=== PATIENT | female | born 1955 | race Caucasian/White ===

== ENCOUNTER 2023-11-11 09:07 | Outpatient (OUT) | payer MEDICARE, SELFPAY ==
--- NOTE | 2023-11-11 09:15 | MM_ITS ---
Patient Name: ADY MEADOWS MR#: [id number] : 1955 Exam Date: 11/11/2023 Ordering Doctor: DR Cindi Kirk M.D. RADIOLOGY REPORT PROCEDURE: MM TOMOSYNTHESIS SCREENING BI COMPARISON: MG MAMM ARCENIO SCRN W CAD DIG, 11/30/2015. MG MAMM SCREEN ARCENIO W CAD, 12/11/2016. INDICATIONS: Screening Calculator Name NCI Breast Cancer Risk Assessment Tool 5 Year Breast Cancer Risk 1.50% Lifetime Breast Cancer Risk 4.50% Personal Breast Cancer No Personal Ovarian Cancer No Treatments None Family Cancers Sister with uterine cancer at age 23. LOCATION: [facility] BREAST COMPOSITION: Extremely dense, which lowers the sensitivity of mammography. FINDINGS: DIAGNOSTIC CATEGORY 2--BENIGN FINDING. NO CHANGE FROM COMPARISON. Scattered benign-appearing calcifications are present. Scattered benign-appearing lymph nodes are present. RIGHT BREAST: No significant suspicious finding. LEFT BREAST: No significant suspicious finding. RECOMMENDATIONS: ROUTINE MAMMOGRAM AND CLINICAL EVALUATION IN 12 MONTHS. PLEASE NOTE: A NORMAL MAMMOGRAM DOES NOT EXCLUDE THE POSSIBILITY OF BREAST CANCER. A CLINICALLY SUSPICIOUS PALPABLE LUMP SHOULD BE BIOPSIED. Dictated by: Rohan Myers MD on 11/11/2023 at 11:18 Approved by: Rohan Myers MD on 11/11/2023 at 11:19
[2023-11-11 10:12] LABS: Basophils Absolute Auto 0.1 10^3/uL (0.0-0.1); Basophils Percent Auto 1.4 % (0.2-2.0); Eosinophils Absolute Auto 0.1 10^3/uL (0.0-0.7); Eosinophils Percent Auto 1.8 % (0.9-7.0); Hematocrit 41.5 % (36.0-48.0); Hemoglobin 13.4 g/dL (12.0-16.0); Immature Granulocytes Abs Auto 0.01 10^3/uL (0.00-0.03); Immature Granulocytes Pct Auto 0.2 % (0.0-0.5); Lymphocytes Absolute Auto 1.4 10^3/uL (1.2-3.8); Lymphocytes Percent Auto 26.6 % (20.5-60.0); Mean Corpuscular HGB Conc 32.3 g/dL (29.9-35.2); Mean Corpuscular Hemoglobin 30.2 pg (26.7-34.0); Mean Corpuscular Volume 93.5 fL (81.0-99.0); Mean Platelet Volume 10.3 fL (9.5-13.5); Monocytes Absolute Auto 0.7 10^3/uL (0.3-0.8); Monocytes Percent Auto 13.3 % (1.7-12.0); Neutrophils Absolute Auto 2.9 10^3/uL (1.4-6.5); Neutrophils Percent Auto 56.7 % (43.0-75.0); Platelet Count 254 10^3/uL (150-450); Red Blood Count 4.44 10^6/uL (4.20-5.40); Red Cell Distribution Width 13.1 % (11.0-15.0); White Blood Count 5.1 10^3/uL (4.0-11.0)
[2023-11-11 12:55] LABS: Alanine Aminotransferase 34 U/L (14-59); Albumin Level 3.5 g/dL (3.4-5.0); Alkaline Phosphatase 111 U/L (46-116); Anion Gap 10.4; Aspartate Amino Transferase 20 U/L (15-37); Bilirubin Total 0.6 mg/dL (0.2-1.0); Calcium 9.3 mg/dL (8.5-10.1); Chloride 104 mmol/L (98-107); Chol HDL Ratio 2.4; Cholesterol 223 mg/dL (<=200); Estimated GFR (African America >60 (>=60); Estimated GFR (Non-African Ame >60 (>=60); Globulin 3.6 g/dL; Glucose 89 mg/dL (74-106); HDL Cholesterol 92 mg/dL (40-60); Potassium 3.4 mmol/L (3.5-5.1); Sodium 139 mmol/L (136-145); Total Protein 7.1 g/dL (6.4-8.2); Triglycerides 42 mg/dL (<=150); VLDL CHOLESTEROL 8.4 mg/dL
== END 2023-11-11 09:08 | disposition home or self-care (01) ==
PROVIDERS: PCP Internal Medicine; Visit Provider Family Medicine
DX: Z12.31 Encounter for screening mammogram for malignant neoplasm of breast (principal); I10 Essential (primary) hypertension; Z80.8 Family history of malignant neoplasm of other organs or systems
CPT/HCPCS: 36415; 77063; 77067; 80053; 80061; 85025

== ENCOUNTER 2024-07-10 05:37 | Emergency (ER) | payer MEDICARE, SELFPAY ==
[2024-07-10 05:45] VITALS: BP 172/87; PULSE 71; TEMP 36.6; O2SAT 96; BMI 29.0
--- NOTE | 2024-07-10 05:53 | XR_ITS ---
The [address] [address] Patient Name: ADY MEADOWS MRN: [id number] date: 1955 Sex: F Assigned Patient Location: ER Current Patient Location: ER Accession/Order Number: [id number] Exam Date: 07/10/2024 06:02 Report Date: 07/10/2024 06:21 At the request of: JARED SALOMON Procedure: XR chest 1V EXAMINATION: XR chest 1V HISTORY: cough COMPARISON: No relevant comparison available. FINDINGS: LUNGS: Mild opacities within lung bases, left greater than right. VASCULATURE: No increased pulmonary vasculature. PLEURA: No pneumothorax, effusion, or pleural thickening. CARDIAC: No cardiomegaly or cardiac silhouette abnormality. MEDIASTINUM: No visible mass or adenopathy. BONES: No fracture or visible bone lesion. OTHER: Negative. XR/XR chest 1V IMPRESSION: 1. Mild bibasilar infiltrates versus atelectasis. Electronically authenticated by: HUMPHREY PEREZ Date: 07/10/2024 06:21
--- OUTSIDE RECORDS SUMMARY | 2024-07-10 05:59 | XMS_ITS | CCD ---
Author Organization [facility] CliniSynj Care Team Providers Care Sign Designer Name Role Phone MIKE, DR IVAN Consulting Unavailable MIKE, DR IVAN Attending Unavailable BALL, DR IVAN Admitting Unavailable MIKE, DR IVAN Primary Care Unavailable KIRK, DR CINDI Husain Admitting Unavailable KIRK, DR CINDI Husain Consulting Unavailable KIRK, DR CINDI Husain Attending Unavailable ARTURO, KRISTINA Consulting Unavailable ARTURO, KRISTINA Attending Unavailable ARTURO, KRISTINA Admitting Unavailable BRIDGER, DR CINDI Husain Primary Care Unavailable KIRK, DR CINDI Husain Attending Unavailable BRIDGER, DR CINDI Husain Admitting Unavailable Cindi Kirk Unavailable Allergies Allergy Classification Reported Allergen(s) Allergy Type Date of Onset Reaction(s) Facility (2 sources) Acetaminophen / oxyCODONE Drug Allergy 04-06-20 15 [facility] Repository (2 sources) Sulfonamides (Antibiotic) Drug allergy (disorder) 10-31-20 14 [facility] (4 sources) Sulfacetamide Drug Allergy 07-04-20 Unknown, [facility] (3 sources) Allergies Reconciled Propensity to adverse reactions Unknown [employer] Other (3 sources) Substance with sulfonamide structure and antibacterial mechanism of action (substance) Drug allergy Unknown [employer] Other (3 sources) Sulf-10 Drug allergy HIVES/VOMITING [employer] Other (1 source) Sulfonamides (Antibiotic) Allergy to substance 07-04-20 [facility] Medications Current Medications Medication Drug Class(es) Dates Sig (Normalized) Sig (Original) [id number] 200 actuat albuterol 0.09 mg/actuat metered dose inhaler (1 source) beta2-Adrenergic Agonist Start: 07-04-20 take 1 puff(s) by inhalation every four to six hours Albuterol Sulfate Active 2 PUFF INHALATION EVERY 4-6 HOURS 8.5 July 04, 2024 12:00am Calcium (3 sources) Phosphate Binder, Calcium Calcium 1 tab Oral Active colchicine 0.6 mg oral tablet (3 sources) Start: 09-13-20 18 Colchicine 0.6 MG Take 2 tablets when you get home, then 1 tablet every 6 hours as needed Orally Once a day for 7 days 10 Sep, 2018 Active fluticasone (3 sources) Corticosteroid Start: 01-13-20 22 Fluticasone Propionate 50MCG/ACT Fluticasone Propionate 50MCG/ACT, 2 (two) [place] daily # 1, 01/12/2022, Ref. x1. Active Nasal daily for 0 *Pick strength-form from Aquaporin for eRX* Jan, Active hydroCHLOROthiazide 25 mg oral tablet (5 sources) Thiazide Diuretic Start: 02-05-20 24 take 1 tablet by mouth once daily Hydrochlorothiazide Active 0 .ROUTE .COMPLEX February 05, 2024 12:55pm Take 1 tablet by mouth once daily Start: 02-05-2024 End: 02-05-2024 take 25 mg by mouth once daily Hydrochlorothiazide Discontinued 25 MG PO Daily February 05, 2024 12:00am February 05, 2024 12:55pm take 1 tablet by obie th once daily hydroCHLOROthiazide 25 MG Take 1 tablet by mouth once daily Active losartan potassium 100 mg oral tablet (10 sources) Angiotensin 2 Receptor Berta Start: 02-05-2024 End: 02-05-2024 take 100 mg by mouth once daily Losartan Active 100 MG PO Daily February 05, 2024 9:27am Start: 01-27-2024 End: 02-05-2024 take 1 tablet by mouth once daily Losartan Discontinued 0 .ROUTE .COMPLEX January 27, 2024 3:17pm February 05, 2024 9:12am Take 1 tablet by mouth once daily for 90 days Start: 01-23-2024 End: 01-27-2024 take 100 mg by mouth once daily Losartan Discontinued 100 MG PO Daily January 24, 2024 8:37am January 27, 2024 3:17pm Start: 01-17-2024 End: 01-23-2024 take 1 tablet by mouth once daily Losartan Discontinued 0 .ROUTE .COMPLEX January 17, 2024 8:33am January 23, 2024 4:06pm Take 1 tablet by mouth once daily for 90 days Start: 01-17-2024 End: 01-17-2024 take 100 mg by mouth once daily Losartan Discontinued 100 MG PO Daily January 17, 2024 12:00am January 17, 2024 8:33am Start: 08-13-2022 take 1 tablet by obie th once daily losartan 100mg losartan 100mg, 1 Tablet daily # 90, 08/13/2022, No Refill. Active oral daily *Reorder from Aquaporin for eRx and Interaction Alerts* Aug, Active Multivitamins (3 sources) Multivitamins Ac tive predniSONE 20 mg oral tablet (1 source) Start: 07-04-2024 take 3 tablets by mouth once daily, then take 2 tablets by mouth once daily, then take 1 tablet by mouth once daily Prednisone Active 20 MG PO .COMPLEX July 04, 2024 12:00am Take 3 tabs po daily x 3 days, then take 2 tabs po daily x 3 days, then take 1 tab po daily x 3 days. Problems Active Problems Problem Classification Problem Date Documented Da te Episodic/Chronic Acute bronchitis (3 sources) Acute bronchitis; Translations: [Acute bronchitis due to other specified organisms] Episodic Allergic reactions (3 sources) Inflammatory dermatosis; Translations: [Dermatitis, unspecified] Episodic Chronic obstructive pulmonary disease and bronchiectasis (3 sources) Bronchitis; Translations: [Bronchitis, not specified as acute or chronic] Episodic Essential hypertension (3 sources) Essential hypertension; Translations: [Essential (primary) hypertension] Chronic Gout and other crystal arthropathies (3 sources) Chondrocalcinosis; Translations: [Other chondrocalcinosis, unspecified site] Chronic Malaise and fatigue (6 sources) Fatigue; Translations: [Other fatigue] Episodic Nonspecific chest pain (7 sources) Chest pain, unspecified; Translations: [Chest pain] Onset: 03-09-2021 Episodic Other circulatory disease (3 sources) Elevated blood-pressure reading without diagnosis of hypertension; Translations: [Elevated blood-pressure reading, without diagnosis of hypertension] Episodic Other connective tissue disease (3 sources) Fibromyalgia; Translations: [Fibromyalgia] Episodic Other lower respiratory disease (6 sources) Snoring; Translations: [Snoring] Episodic Other nutritional; endocrine; and metabolic disorders (3 sources) Body mass index 25-29 - overweight; Translations: [Body mass index (BMI) 28.0-28.9, adult] Episodic Otitis media and related conditions (3 sources) Dysfunction of left eustachian tube; Translations: [Other specified disorders of Eustachian tube, left ear] Episodic Thyroid disorders (3 sources) Non-toxic uninodular goiter; Translations: [Nontoxic single thyroid nodule] Chronic Unclassified (3 sources) CONTACT W/AND (SUSP) EXPOS COVID-19; Translations: [CONTACT W/AND (SUSP) EXPOS COVID-19] Onset: 08-20-2021 Unclassified (3 sources) Exposure to acute respiratory syndrome coronavirus 2; Translations: [Contact with and (suspected) exposure to COVID-19] Viral infection (1 source) COVID-19; Translations: [COVID-19] Onset: 12-05-2020 Past or Other Problems Problem Classification Problem Date Documented Da te Episodic/Chronic Immunizations and screening for infectious disease (3 sources) Contact with and (suspected) exposure to other viral communicable diseases; Translations: [CONTCT EXPS OTH VIRL COMMUNICABL DZ] Onset: 10-31-2020 Episodic Other lower respiratory disease (1 source) Cough; Translations: [COUGH] Onset: 12-05-2020 Episodic Unclassified (1 source) CONTACT W/AND (SUSP) EXPOS COVID-19; Translations: [CONTACT W/AND (SUSP) EXPOS COVID-19] Onset: 08-15-2021 Results Test Name Value Interpretation Reference Range Facil ity Covid-19 PCR (CVDTB)on 08-04 SARS-CoV-2 (COVID-19) RNA TANNA+probe Ql (Unsp spec) Not detected Normal NOT DETECTED [facility] Comment on above: Result Comment: This test is not yet approved or cleared by the [place] FDA. When there are no FDA-approved or cleared tests available, and other criteria are met, FDA can make tests available under an emergency access mechanism called an Emergency Use Authorization (EUA). The EUA for this test is supported by the [place] of Health and Human Service's (HHS's) declaration that circumstances exist to justify the emergency use of in vitro diagnostics for the detection and/or diagnosis of the virus that causes COVID-19. This EUA will remain in effect (meaning this test can be used) for the duration of the COVID-19 declaration justifying emergency of IVDs, unless it is terminated or revoked by FDA (after which the test may no longer be used). When diagnostic testing is negative, the possibility of a false negative should be considered in the context of a patient's recent exposures and the presence of clinical signs and symptoms consistent with SARS-CoV-2. Performed By: #### [facility] #### [facility] [address] [place] [address] Dr. Guremet Hart CBC AUTO DIFFon 03-09-2021 BASO # 0.1 103/ul Normal 0.0-0.1 [facility] Comment on above: Performed By: #### C BC #### [facility] [address] [place] [address] Jose C Jillian Basophils/100 WBC (Bld) 1.0 % Normal 0.2-2.0 [facility] Comment on above: Performed By: #### C BC #### [facility] [address] [place] [address] Jose C Jillian EO # 0.1 103/ul Normal 0.0-0.7 [facility] Comment on above: Performed By: #### C BC #### [facility] [address] [place] [address] Jose C Jillian Eosinophils/100 WBC (Bld) 1.2 % Normal 0.9-7.0 [facility] Comment on above: Performed By: #### C BC #### [facility] [address] [place] [address] Jose C Jillian Erythrocyte distribution width (RBC) [Ratio] 13.5 % Normal 11.0-15.0 [facility] Comment on above: Performed By: #### C BC #### [facility] [address] [place], [place] [id number] Jose C Jillian Hematocrit (Bld) [Volume fraction] 40.3 % Normal 36.0-48.0 [facility] Comment on above: Performed By: #### C BC #### [facility] [address] [place], [place] [id number] Jose C Jillian Hemoglobin (Bld) [Mass/Vol] 13.4 g/dL Normal 12.0-16.0 [facility] Comment on above: Performed By: #### C BC #### [facility] [address] [place] [address] Jose Cdora Walsh IG # 0.01 10e3/ul Normal 0.00-0.03 [facility] Comment on above: Performed By: #### C BC #### [facility] [address] [place] [address] Jose C Jillian IG % 0.2 % Normal 0.0-0.5 [facility] Comment on above: Performed By: #### C BC #### [facility] [address] [place] [address] Jose Cdora Walsh LYMPH # 1.5 103/ul Normal 1.2-3.8 [facility] Comment on above: Performed By: #### C BC #### [facility] [address] [place] [address] Jose C Walsh Lymphocytes/100 WBC (Bld) 31.4 % Normal 20.5-60.0 [facility] Comment on above: Performed By: #### C BC #### [facility] [address] [place] [address] Jose C Walsh MANUAL DIFF REQ NO Normal [facility] Comment on above: Performed By: #### C BC #### [facility] [address] [place] [address] Jose Cdora Walsh MCH (RBC) [Entitic mass] 31.2 pg Normal 26.7-34.0 [facility] Comment on above: Performed By: #### C BC #### [facility] [address] [place] [address] Jose Cdora Walsh MCHC (RBC) [Mass/Vol] 33.3 g/dL Normal 29.9-35.2 [facility] Comment on above: Performed By: #### C BC #### [facility] [address] [place] [address] Jose Cdora Walsh MCV (RBC) [Entitic vol] 93.7 fL Normal 81.0-99.0 [facility] Comment on above: Performed By: #### C BC #### [facility] [address] [id number] Jose C Cruzen MONO # 0.6 103/ul Normal 0.3-0.8 [facility] Comment on above: Performed By: #### C BC #### [facility] [address] [id number] Jose C Cruzen Monocytes/100 WBC (Bld) 11.8 % Normal 1.7-12.0 [facility] Comment on above: Performed By: #### C BC #### [facility] [address] [place], [place] [id number] Jose C Jillian NEUT # 2.7 103/ul Normal 1.4-6.5 [facility] Comment on above: Performed By: #### C BC #### [facility] [address] [place], [place] [id number] Jose C Cruzen Neutrophils/100 WBC (Bld) 54.4 % Normal 43.0-75.0 [facility] Comment on above: Performed By: #### C BC #### [facility] [address] [place], [place] [id number] Jose C Walsh Platelet mean volume (Bld) [Entitic vol] 10.5 fL Normal 9.5-13.5 [facility] Comment on above: Performed By: #### C BC #### [facility] [address] [place], [place] [id number] Jose C Jillian PLT 232 103/ul Normal 150-450 [facility] Comment on above: Performed By: #### C BC #### [facility] [address] [place], [place] [address] Jose C Jillian RBC 4.30 106/ul Normal 4.20-5.40 [facility] Comment on above: Performed By: #### C BC #### [facility] [address] [place], [place] [id number] Jose C Jillian WBC 4.9 103/ul Normal 4.0-11.0 [facility] Comment on above: Performed By: #### C BC #### [facility] [address] [id number] Jose C Jillian PROF CHEM 8 (BAS METB)on Anion gap [Moles/Vol] 10.2 mmol/L Normal [facility] Comment on above: Performed By: #### B OSMANY, HSTROPN #### [facility] [address] [place] [address] Jose C Jillian Calcium [Mass/Vol] 9.5 mg/dL Normal 8.4-10.2 [facility] Comment on above: Performed By: #### B OSMANY, HSTROPN #### [facility] [address] [place] [address] Jose C Jillian Chloride [Moles/Vol] 105 mmol/L Normal 98-107 [facility] Comment on above: Performed By: #### B OSMANY, HSTROPN #### [facility] [address] [place] [address] Jose C Jillian CO2 [Moles/Vol] 30.9 mmol/L Critically high 22.0-30.0 [facility] Comment on above: Performed By: #### B OSMANY, HSTROPN #### [facility] [address] [place] [address] Jose C Jillian Creatinine [Mass/Vol] 0.67 mg/dL Normal 0.52-1.04 [facility] Comment on above: Performed By: #### B OSMANY, HSTROPN #### [facility] [address] [place], [place] [address] Jose C Jillian EGFR-AF CAMBODIAN >60 Normal >=60 [facility] Comment on above: Performed By: #### B OSMANY, HSTROPN #### [facility] [address] [place], [place] [address] Jose C Jillian EGFR-NON AF CAMBODIAN >60 Normal >=60 [facility] Comment on above: Performed By: #### B OSMANY, HSTROPN #### [facility] [address] [place] [address] Jose C Jillian Glucose [Mass/Vol] 81 mg/dL Normal 74-106 [facility] Comment on above: Performed By: #### B MP, HSTROPN #### [facility] [address] [id number] Jose C Jillian Potassium [Moles/Vol] 4.1 mmol/L Normal 3.4-5.0 [facility] Comment on above: Performed By: #### B MP, HSTROPN #### [facility] [address] [id number] Jose C Jillian Sodium [Moles/Vol] 142 mmol/L Normal 137-145 [facility] Comment on above: Performed By: #### B MP, HSTROPN #### [facility] [address] [place] [address] Jose C Jillian Urea nitrogen [Mass/Vol] 23.0 mg/dL Critically high 7.0-17.0 [facility] Comment on above: Performed By: #### B MP, HSTROPN #### [facility] [address] [place], [place] [id number] Jose C Jillian Urea nitrogen/Creatinine [Mass ratio] 34.3 mg/mg Normal [facility] Comment on above: Performed By: #### B MP, HSTROPN #### [facility] [address] [place], [place] [address] Jose C Walsh TROPONIN, HIGH SENSITIVITYon 03-09-2021 HSTROP 7.5 pg/mL Normal 4.0-35.5 [facility] Comment on above: Result Comment: CUT- OFF POINTS HAVE BEEN ESTABLISHED BASED ON THE FOURTH UNIVERSAL DEFINITIONS OF MYOCARDIAL INFARCTION. THE UPPER REFERENCE LIMIT (URL) OF TROPONIN, DEFINED THE 99TH PERCENTILE OF cTnI DISTRIBUTION IN A REFERENCE POPULATION, HAS BEEN CONFIRMED THE DECISION THRESHOLD FOR WI DIAGNOSIS. Performed By: #### B MP, HSTROPN #### [facility] [address] [place], [place] [id number] Jose C Cruzen Covid-19 PCR (CVDTBH)on 10-05 EUA Statement SEE BELOW Normal [facility] Comment on above: Result Comment: This test is not yet approved or cleared by the [place] FDA. When there are no FDA-approved or cleared tests available, and other criteria are met, FDA can make tests available under an emergency access mechanism called an Emergency Use Authorization (EUA). The EUA for this test is supported by the [place] of Health and Human Service?s (HHS?s) declaration that circumstances exist to justify the emergency use of in vitro diagnostics for the detection and/or diagnosis of the virus that causes COVID-19. This EUA will remain in effect (meaning this test can be used) for the duration of the COVID-19 declaration justifying emergency of IVDs, unless it is terminated or revoked by FDA (after which the test may no longer be used). When diagnostic testing is negative, the possibility of a false negative should be considered in the context of a patients recent exposures and the presence of clinical signs and symptoms consistent with SARS-CoV-2. Performed By: #### C NOTB #### [facility] [address] [place] [address] Jose C Walsh SARS-CoV-2 (COVID-19) RNA TANNA+probe Ql (Unsp spec) Detected Abnormal NOT DETECTED [facility] Comment on above: Result Comment: This test is not yet approved or cleared by the [place] FDA. When there are no FDA-approved or cleared tests available, and other criteria are met, FDA can make tests available under an emergency access mechanism called an Emergency Use Authorization (EUA). The EUA for this test is supported by the [employer] Manager of Health and Human Service's (HHS's) declaration that circumstances exist to justify the emergency use of in vitro diagnostics for the detection and/or diagnosis of the virus that causes COVID-19. This EUA will remain in effect (meaning this test can be used) for the duration of the COVID-19 declaration justifying emergency of IVDs, unless it is terminated or revoked by FDA (after which the test may no longer be used). Performed By: #### C VDTB #### [facility] [address] [id number] Jose C Walsh Vital Signs Date Time Vital Sign Value Performing Clinician Alanna stephens 07-04-2024 09:45-0400 Body height 166.[address] [facility] 07-04-2024 09:45-0400 Body mass index (BMI) [Ratio] 29.5 kg/m2 [facility] 07-04-2024 09:45-0400 Body temperature 96.2 [degF] [facility] 07-04-2024 09:45-0400 Body weight 81.[address] [facility] 07-04-2024 09:45-0400 Diastolic blood pressure 61 mm[Hg] [facility] 07-04-2024 09:45-0400 Heart rate 64 /min [facility] 07-04-2024 09:45-0400 Respiratory rate 18 /min [facility] 07-04-2024 09:45-0400 SaO2% (BldA) [Mass fraction] 96 % [facility] 07-04-2024 09:45-0400 Systolic blood pressure 144 mm[Hg] [facility] Encounters Encounter Date Encounter Type Care Provider Facility Start: 07-04-2024 End: 07-04-2024 ambulatory [facility] Work Phone: Start: 07-04-2024 End: 07-04-2024 Patient encounter procedure [facility] Work Phone: Start: 11-19-2023 End: 11-19-2023 ambulatory Cindi Kirk Other [employer] Other Start: 11-19-2023 Telephone encounter Cindi Kirk [facility] Start: 11-11-2023 End: 11-11-2023 ambulatory Cindi Kirk Other [employer] Other Start: 11-11-2023 Telephone encounter Cindi Kirk [facility] Start: 08-15-2021 End: 08-15-[address] MONCHO MCKEON Facility:[facility] Start: 07-24-[address] CINDI KIRK [facility] ity:[facility] Start: 03-09-2021 End: 03-10-[address] CINDI KIRK Facility:[facility] Start: 10-31-2020 End: 10-31-2020 ambulatory KRISTINA MORRIS Facility:[facility] Payers Date Payer Category Payer Unknown [id number] 1955 Unknown [id number] [id number] [id number] 1955 Unknown [id number] 2.16.84 [id number] 1955 Unknown [id number] [id number] [id number] 1955 Unknown [id number] [id number] [id number] Medicare Medicare [id number] Medicare Medicare-OP No Part B [id number] Self-pay Self Pay [id number] Social History Date Type Detail Facility Unknown if ever smoked [employer] Other Sex Assigned At Sex Assigned At Bir th [employer] Other Start: 07-04-2024 Tobacco smoking status NHIS Never smoked tobacco (finding) [facility] Start: 1955 Sex Assigned At Female F [facility] Evaluation note Note Date & Type Note Facility Evaluation note No Information Lala Other Evaluation note Note Date & Type Note Facility Evaluation note No assessment information availa [facility] Work Phone: History general Narrative - Reported Note Date & Type Note Facility History general Narrative - Reported Type Medical History Hypertension Medical History Thyroid nodule Medical History Loud snoring Medical History Fatigue Medical History Fibromyalgia Surgical History tubal ligation Surgical History wisdom teeth Surgical History wrist surgery LT Hospitalization History SEE SURGICAL HX [employer] Other Summary Purpose Family History Relationship Condition Age at Onset Recorded Date/T sheree brother Unknown father Hypertension Unknown Unknown Heart disease Unknown Malignant neoplasm Unknown mother Heart disease Unknown Diabetes mellitus Unknown Hypertension Unknown sister Malignant neoplasm Unknown Advance Directives Advance Directive Response Recorded Date/ Time Advance Directives No September 9:16am Chief Complaint and Reason for Visit Chief Complaint cough Additional Source Comments INFORMATION SOURCE (unrecogn ized section and content) DATE CREATED AUTHOR 08/20/2021 [facility] [employer] REASON FOR VISIT (unrecogniz ed section and content) ERRORlabsmessage Care Teams (unrecognized sec tion and content) Team Status: Active Member Role Status Dates PHYSICIAN NO FAMILY Primary Care Provider Active Team Status: Inactive Member Role Status Dates PHYSICIAN NO FAMILY Primary Care Provider Active Start: July 04, 2024 End: July 04, 2024 Jovita Valdez APRN Attending Provider Active Start: July 04, 2024 End: July 04, 2024 Goals (unrecognized section and content) Goals may be documented in a n alternate section FOR RECORDS PERTAINING TO PATIENTS WHO ARE OR HAVE BEEN ENROLLED IN A CHEMICAL DEPENDENCY/SUBSTANCEABUSE PROGRAM, SOME INFORMATION MAY BE OMITTED. This clinical summary was aggregated from multiple sources. Caution should be exercised in using it in the provision of clinical care. This summary normalizes information from multiple sources, and as a consequence, information in this document may materially change the coding, format and clinical context of patient data. In addition, data may be omitted in some cases. CLINICAL DECISIONS SHOULD BE BASED ON THE PRIMARY CLINICAL RECORDS. [employer] [facility]. provides no warranty or guarantee of the accuracy or completeness of information in this document.
[2024-07-10 06:30] LABS: Internal Control Within Normal Limits
[2024-07-10 06:31] LABS: SARS-CoV-2 Ag POSITIVE (NEGATIVE)
--- NOTE | 2024-07-10 06:31 | ED.URI1 ---
HPI - URI/Sore Throat General Chief Complaint: Upper Respiratory Infection Stated Complaint: COUGH Time Seen by Provider: 07/10/24 06:25 Source: patient Limitations: no limitations History of Present Illness HPI Narrative: cough for one week. Was seen at urgent care this past weekend and prescribed prednisone and an inhaler. Does not feel it helped. Continues to cough. Not short of breath but difficult to get a full breath. No nausea or vomiting. Past history of Bronchitis Related Data Home Medications ?Medication ?Instructions ?Recorded ?Confirmed albuterol sulfate 90 mcg/actuation inhalation 07/10/24 aerosol inhaler hydrochlorothiazide 25 mg tablet mg 07/10/24 losartan 100 mg tablet mg 07/10/24 prednisone 20 mg tablet mg 07/10/24 Allergies Allergy/AdvReac Type Severity Reaction Status Date / Time Sulfa (Sulfonamide Allergy Rash Verified 07/10/24 05:45 Antibiotics) Review of Systems ROS Status of ROS 10 or more systems reviewed and unremarkable except as noted in history and below [facility] Medical History (Updated 07/10/24 @ 06:42 by Chucho Maradiaga MD) Hypertension ?I10 - Essential (primary) hypertension (ICD-10) Social History Little interest or pleasure in doing things: not at all Feeling down, depressed, or hopeless: not at all Exam Constitutional Vital Signs, click to edit/add: Last Vital Signs Temp 97.8 F 07/10/24 05:45 Pulse 71 07/10/24 05:45 Resp 24 H 07/10/24 05:45 BP 172/87 H 07/10/24 05:45 Pulse Ox 96 07/10/24 05:45 O2 Del Method Room Air 07/10/24 05:45 Common normals: no apparent distress, average body habitus, oriented x3, no limitations, healthy appearing, alert and well nourished [facility] Common normals: normocephalic and head/scalp atraumatic Eye Common normals: PERRL, EOMs intact bilaterally and conjunctivae normal Respiratory Common normals: normal respiratory effort, no retractions and no use of accessory muscles Other: frequent dry cough Cardio Common normals: regular rate, regular rhythm, S1 normal heart sound and S2 normal heart sound Extremity Common normals: normal to inspection and full ROM Neuro Common normals: oriented x3, CN's II-XII intact bilaterally, moves all extremities and no focal motor deficits Psych Appearance: grossly normal Course Vital Signs Vital signs: Vital Signs Temperature 97.8 F 07/10/24 05:45 Pulse Rate 71 07/10/24 05:45 Respiratory Rate 24 H 07/10/24 05:45 Blood Pressure 172/87 H 07/10/24 05:45 Pulse Oximetry 96 07/10/24 05:45 Oxygen Delivery Method Room Air 07/10/24 05:45 Temperature 97.8 F 07/10/24 05:45 Pulse Rate 71 07/10/24 05:45 Respiratory Rate 24 H 07/10/24 05:45 Blood Pressure 172/87 H 07/10/24 05:45 Pulse Oximetry 96 07/10/24 05:45 Oxygen Delivery Method Room Air 07/10/24 05:45 MDM - URI/Sore Throat MDM Narrative Medical decision making narrative: patient presents with cough for 8 days. positive for COVID19. her exam is unremarkable except for repetitive cough. Cxray ordered as well as COVID19 , CBC and BMP. labs pending at change of shift and care transferred to [facility] physician Discharge Plan Discharge Chief Complaint: Upper Respiratory Infection Clinical Impression: COVID-19 Patient Disposition: Still a Patient Prescriptions / Home Meds: No Action prednisone 20 mg tablet hydrochlorothiazide 25 mg tablet albuterol sulfate 90 mcg/actuation HFA aerosol inhaler INHALATION losartan 100 mg tablet Print Language: Arabic Referrals: Juan Carlos Short DO [Primary Care Provider] - 1 week
[2024-07-10] MEDS: ALBUTEROL SULFATE 2.5 MG/3 ML VIAL NEB IH (06:41)
[2024-07-10 06:42] VITALS: PULSE 63; O2SAT 96
[2024-07-10] MEDS: ACETAMINOPHEN 325 MG TABLET 650 MG PO (06:52)
[2024-07-10 07:09] LABS: Basophils Absolute Auto 0.1 10^3/uL (0.0-0.1); Basophils Percent Auto 0.6 % (0.2-2.0); Eosinophils Absolute Auto 0.3 10^3/uL (0.0-0.7); Eosinophils Percent Auto 3.4 % (0.9-7.0); Hematocrit 39.1 % (36.0-48.0); Hemoglobin 13.5 g/dL (12.0-16.0); Immature Granulocytes Abs Auto 0.04 10^3/uL (0.00-0.03); Immature Granulocytes Pct Auto 0.5 % (0.0-0.5); Lymphocytes Absolute Auto 3.1 10^3/uL (1.2-3.8); Lymphocytes Percent Auto 35.9 % (20.5-60.0); Mean Corpuscular HGB Conc 34.5 g/dL (29.9-35.2); Mean Corpuscular Hemoglobin 32.8 pg (26.7-34.0); Mean Corpuscular Volume 94.9 fL (81.0-99.0); Mean Platelet Volume 10.4 fL (9.5-13.5); Monocytes Absolute Auto 1.1 10^3/uL (0.3-0.8); Monocytes Percent Auto 12.4 % (1.7-12.0); Neutrophils Absolute Auto 4.1 10^3/uL (1.4-6.5); Neutrophils Percent Auto 47.2 % (43.0-75.0); Platelet Count 305 10^3/uL (150-450); Red Blood Count 4.12 10^6/uL (4.20-5.40); Red Cell Distribution Width 13.7 % (11.0-15.0); White Blood Count 8.6 10^3/uL (4.0-11.0)
[2024-07-10 07:29] LABS: Anion Gap 13.6; Calcium 9.2 mg/dL (8.5-10.1); Carbon Dioxide 26.5 mmol/L (21.0-32.0); Chloride 102 mmol/L (98-107); Estimated GFR (African America >60 (>=60); Estimated GFR (Non-African Ame >60 (>=60); Glucose 92 mg/dL (74-106); Potassium 3.1 mmol/L (3.5-5.1); Sodium 139 mmol/L (136-145)
[2024-07-10 07:40] VITALS: BP 156/89; PULSE 88; O2SAT 96
== END 2024-07-10 08:35 | disposition home or self-care (01) ==
PROVIDERS: Internal Medicine; Emergency Provider Emergency Medicine Emergency Medical Services; PCP Internal Medicine
DX: U07.1 COVID-19 (principal)
CPT/HCPCS: 36415; 71045; 80048; 85025; 87811; 94640; 99284

== ENCOUNTER 2024-07-15 09:59 | Outpatient (OUT) | payer MEDICARE, SELFPAY ==
--- NOTE | 2024-07-15 10:07 | XR_ITS ---
[address] [address] Patient Name: ADY MEADOWS MRN: [id number] date: 1955 Sex: F Assigned Patient Location: [facility] Current Patient Location: RAD Accession/Order Number: [id number] Exam Date: 07/15/2024 10:11 Report Date: 07/15/2024 10:46 At the request of: BROOKLYNN LOPEZ Procedure: XR chest 2V EXAMINATION: XR chest 2V HISTORY: Viral Upper Respiratory Tract Infection COMPARISON: 07/10/2024 TECHNIQUE: PA and lateral FINDINGS: LUNGS: No significant pulmonary parenchymal abnormalities. VASCULATURE: No increased pulmonary vasculature. PLEURA: No pneumothorax, effusion, or pleural thickening. CARDIAC: No cardiomegaly or cardiac silhouette abnormality. MEDIASTINUM: No visible mass or adenopathy. BONES: No fracture or visible bone lesion. Dextrocurvature OTHER: Negative. XR/XR chest 2V IMPRESSION: No acute abnormality Electronically authenticated by: ANNE KURTZ Date: 07/15/2024 10:46
--- OUTSIDE RECORDS SUMMARY | 2024-07-15 10:11 | XMS_ITS | CCD ---
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 Role Phone MIKE, DR IVAN Consulting [...] / oxyCODONE Drug Allergy 04-06-20 15 [facility] Repository (2 sources) Sulfonamides (Antibiotic) Drug allergy (disorder) 10-31-20 14 [facility] Repository (4 sources) Sulfacetamide Drug Allergy 07-04-20 Unknown, [facility] (3 sources) Allergies Reconciled Propensity to adverse reactions Unknown [facility] Other (3 sources) Substance with sulfonamide structure and antibacterial mechanism of action (substance) Drug allergy Unknown [facility] Other (3 sources) Sulf-10 Drug allergy HIVES/VOMITING [facility] Other (1 source) Sulfonamides (Antibiotic) Allergy to substance 07-04-20 [facility] Medications Current Medications Medication Drug Class(es) Dates Sig (Normalized) Sig (Original) [id number] 200 actuat albuterol 0.09 mg/actuat metered dose [...] Propionate 50MCG/ACT Fluticasone Propionate 50MCG/ACT, 2 (two) [place] daily # 1, 01/12/2022, Ref. x1. Active Nasal daily for 0 *Pick strength-form from [employer] for eRX* Jan, Active hydroCHLOROthiazide 25 mg [...] No Refill. Active oral daily *Reorder from [employer] for eRx and Interaction Alerts* Aug, Active [...] spec) Not detected Normal NOT DETECTED [facility] Comment on above: Result Comment: This test is not yet approved or cleared by the [place] FDA. When there are no FDA-approved or cleared tests available, and other criteria are met, FDA can make tests available under an emergency access mechanism called an Emergency Use Authorization (EUA). The EUA for this test is supported by the [place] of Health and Human Service's (HHS's) declaration [...] consistent with SARS-CoV-2. Performed By: #### [facility] #### [facility] [address] [place] [address] Dr. Gurmeet Hart CBC AUTO DIFFon 03-09-2021 BASO # 0.1 103/ul Normal 0.0-0.1 [facility] Comment on above: Performed By: #### C BC #### [facility] [address] [place] [address] Jose C Jillian Basophils/100 WBC (Bld) 1.0 % Normal 0.2-2.0 [facility] Comment on above: Performed By: #### C BC #### [facility] [address] [place] [address] Jose C Jillian EO # 0.1 103/ul Normal 0.0-0.7 [facility] Comment on above: Performed By: #### C BC #### [facility] [address] [place] [address] Jose C Jillian Eosinophils/100 WBC (Bld) 1.2 % Normal 0.9-7.0 [facility] Comment on above: Performed By: #### C BC #### [facility] [address] [place] [address] Jose C Jillian Erythrocyte distribution width (RBC) [Ratio] 13.5 % Normal 11.0-15.0 [facility] Comment on above: Performed By: #### C BC #### [facility] [address] [place], [place] [id number] Jose C Jillian Hematocrit (Bld) [Volume fraction] 40.3 % Normal 36.0-48.0 [facility] Comment on above: Performed By: #### C BC #### [facility] [address] [place], [place] [id number] Jose C Jillian Hemoglobin (Bld) [Mass/Vol] 13.4 g/dL Normal 12.0-16.0 [facility] Comment on above: Performed By: #### C BC #### [facility] [address] [place] [address] Jose Cdora Walsh IG # 0.01 10e3/ul Normal 0.00-0.03 [facility] Comment on above: Performed By: #### C BC #### [facility] [address] [place] [address] Jose C Jillian IG % 0.2 % Normal 0.0-0.5 [facility] Comment on above: Performed By: #### C BC #### [facility] [address] [place] [address] Jose Cdora Walsh LYMPH # 1.5 103/ul Normal 1.2-3.8 [facility] Comment on above: Performed By: #### C BC #### [facility] [address] [place] [address] Jose C Walsh Lymphocytes/100 WBC (Bld) 31.4 % Normal 20.5-60.0 [facility] Comment on above: Performed By: #### C BC #### [facility] [address] [place] [address] Jose C Walsh MANUAL DIFF REQ NO Normal [facility] Comment on above: Performed By: #### C BC #### [facility] [address] [place] [address] Jose Cdora Walsh MCH (RBC) [Entitic mass] 31.2 pg Normal 26.7-34.0 [facility] Comment on above: Performed By: #### C BC #### [facility] [address] [place] [address] Jose Cdora Walsh MCHC (RBC) [Mass/Vol] 33.3 g/dL Normal 29.9-35.2 [facility] Comment on above: Performed By: #### C BC #### [facility] [address] [place] [address] Jose Cdora Walsh MCV (RBC) [Entitic vol] 93.7 fL Normal 81.0-99.0 [facility] Comment on above: Performed By: #### C BC #### [facility] [address] [id number] Jose C Cruzen MONO # 0.6 103/ul Normal 0.3-0.8 [facility] Comment on above: Performed By: #### C BC #### [facility] [address] [id number] Jose C Cruzen Monocytes/100 WBC (Bld) 11.8 % Normal 1.7-12.0 [facility] Comment on above: Performed By: #### C BC #### [facility] [address] [place], [place] [address] Jose C Jillian NEUT # 2.7 103/ul Normal 1.4-6.5 [facility] Comment on above: Performed By: #### C BC #### [facility] [address] [place], [place] [address] Jose C Cruzen Neutrophils/100 WBC (Bld) 54.4 % Normal 43.0-75.0 [facility] Comment on above: Performed By: #### C BC #### [facility] [address] [place], [place] [address] Jose C Walsh Platelet mean volume (Bld) [Entitic vol] 10.5 fL Normal 9.5-13.5 [facility] Comment on above: Performed By: #### C BC #### [facility] [address] [place], [place] [address] Jose C Jillian PLT 232 103/ul Normal 150-450 [facility] Comment on above: Performed By: #### C BC #### [facility] [address] [place], [place] [address] Jose C Jillian RBC 4.30 106/ul Normal 4.20-5.40 [facility] Comment on above: Performed By: #### C BC #### [facility] [address] [place], [place] [address] Jose C Jillian WBC 4.9 103/ul Normal 4.0-11.0 [facility] Comment on above: Performed By: #### C BC #### [facility] [address] [id number] Jose C Jillian PROF CHEM 8 (BAS METB)on Anion gap [Moles/Vol] 10.2 mmol/L Normal [facility] Comment on above: Performed By: #### B OSMANY, HSTROPN #### [facility] [address] [place] [address] Jose C Jillian Calcium [Mass/Vol] 9.5 mg/dL Normal 8.4-10.2 [facility] Comment on above: Performed By: #### B OSMANY, HSTROPN #### [facility] [address] [place] [address] Jose C Jillian Chloride [Moles/Vol] 105 mmol/L Normal 98-107 [facility] Comment on above: Performed By: #### B OSMANY, HSTROPN #### [facility] [address] [place] [address] Jose C Jillian CO2 [Moles/Vol] 30.9 mmol/L Critically high 22.0-30.0 [facility] Comment on above: Performed By: #### B OSMANY, HSTROPN #### [facility] [address] [place] [address] Jose C Jillian Creatinine [Mass/Vol] 0.67 mg/dL Normal 0.52-1.04 [facility] Comment on above: Performed By: #### B OSMANY, HSTROPN #### [facility] [address] [place], [place] [address] Jose C Jillian EGFR-AF TURKMEN >60 Normal >=60 [facility] Comment on above: Performed By: #### B OSMANY, HSTROPN #### [facility] [address] [place], [place] [address] Jose C Jillian EGFR-NON AF TURKMEN >60 Normal >=60 [facility] Comment on above: Performed By: #### B OSMANY, HSTROPN #### [facility] [address] [place] [address] Jose C Jillian Glucose [Mass/Vol] 81 mg/dL Normal 74-106 [facility] Comment on above: Performed By: #### B MP, HSTROPN #### [facility] [address] [id number] Jose C Jillian Potassium [Moles/Vol] 4.1 mmol/L Normal 3.4-5.0 [facility] Comment on above: Performed By: #### B MP, HSTROPN #### [facility] [address] [id number] Jose C Jillian Sodium [Moles/Vol] 142 mmol/L Normal 137-145 [facility] Comment on above: Performed By: #### B MP, HSTROPN #### [facility] [address] [place] [address] Jose C Jillian Urea nitrogen [Mass/Vol] 23.0 mg/dL Critically high 7.0-17.0 [facility] Comment on above: Performed By: #### B MP, HSTROPN #### [facility] [address] [place], [place] [address] Jose C Jillian Urea nitrogen/Creatinine [Mass ratio] 34.3 mg/mg Normal [facility] Comment on above: Performed By: #### B MP, HSTROPN #### [facility] [address] [place], [place] [address] Jose C Walsh TROPONIN, HIGH SENSITIVITYon 03-09-2021 HSTROP 7.5 pg/mL Normal 4.0-35.5 [facility] Comment on above: Result Comment: CUT- OFF POINTS HAVE BEEN ESTABLISHED BASED ON THE FOURTH UNIVERSAL DEFINITIONS OF MYOCARDIAL INFARCTION. THE UPPER REFERENCE LIMIT (URL) OF TROPONIN, DEFINED THE 99TH PERCENTILE OF cTnI DISTRIBUTION IN A REFERENCE POPULATION, HAS BEEN CONFIRMED THE DECISION THRESHOLD FOR DC DIAGNOSIS. Performed By: #### B MP, HSTROPN #### [facility] [address] [place], [place] [address] Jose C Cruzen Covid-19 PCR (CVDTBH)on 10-05 EUA Statement SEE BELOW Normal [facility] Comment on above: Result Comment: This test is not yet approved or cleared by the [place] FDA. When there are no FDA-approved or cleared tests available, and other criteria are met, FDA can make tests available under an emergency access mechanism called an Emergency Use Authorization (EUA). The EUA for this test is supported by the [place] of Health and Human Service?s (HHS?s) declaration [...] SARS-CoV-2. Performed By: #### C NOTB #### [facility] [address] [place] [address] Jose C Walsh SARS-CoV-2 (COVID-19) RNA TANNA+probe Ql (Unsp spec) Detected Abnormal NOT DETECTED [facility] Comment on above: Result Comment: This test is not yet approved or cleared by the [place] FDA. When there are no FDA-approved or cleared tests available, and other criteria are met, FDA can make tests available under an emergency access mechanism called an Emergency Use Authorization (EUA). The EUA for this test is supported by the [employer] of Health and Human Service's (HHS's) declaration [...] used). Performed By: #### C VDTB #### [facility] [address] [id number] Jose C Walsh Vital Signs Date Time Vital Sign Value Performing Clinician Alanna stephens 07-04-2024 09:45-0400 Body height 166.37 cm [facility] 07-04-2024 09:45-0400 Body mass index (BMI) [Ratio] 29.5 kg/m2 [facility] 07-04-2024 09:45-0400 Body temperature 96.2 [degF] [facility] 07-04-2024 09:45-0400 Body weight 81.64 kg [facility] 07-04-2024 09:45-0400 Diastolic blood pressure 61 mm[Hg] [facility] 07-04-2024 09:45-0400 Heart rate 64 /min [facility] 07-04-2024 09:45-0400 Respiratory rate 18 /min [facility] 07-04-2024 09:45-0400 SaO2% (BldA) [Mass fraction] 96 % [facility] 07-04-2024 09:45-0400 Systolic blood pressure 144 mm[Hg] [facility] Encounters Encounter Date Encounter Type Care Provider Facility Start: 07-04-2024 End: 07-04-2024 ambulatory [facility] Work Phone: Start: 07-04-2024 End: 07-04-2024 Patient encounter procedure [facility] Work Phone: Start: 11-19-2023 End: 11-19-2023 ambulatory Cindi Kirk Other [facility] Other Start: 11-19-2023 Telephone encounter Cindi Kirk [facility] Start: 11-11-2023 End: 11-11-2023 ambulatory Cindi Kirk Other [facility] Other Start: 11-11-2023 Telephone encounter Cindi Kirk [facility] Start: 08-15-2021 End: 08-15-[address] MONCHO MCKEON Facility:[facility] Start: 07-24-[address]K [facility] ity:[facility]1 Start: 03-09-2021 End: 03-10-[address] CINDI KIRK Facility:[facility] Start: 10-31-2020 End: 10-31-2020 ambulatory KRISTINA MORRIS Facility:[facility] Payers Date Payer Category Payer Unknown [id number] 1955 Unknown [id number] [id number] [id number] 1955 Unknown [id number] 2.16.84 [id number] 1955 Unknown [id number] 2.16.84 [id number] 1955 Unknown [id number] [id number] [id number] Medicare Medicare [id number] Medicare Medicare-OP No Part B [id number] Self-pay Self Pay [id number] Social History Date Type Detail Facility Unknown if ever smoked [facility] Other Sex Assigned At Sex Assigned At Bir th [facility] Other Start: 07-04-2024 Tobacco smoking status NHIS Never smoked tobacco (finding) [facility] Start: 1955 Sex Assigned At Female [facility] Evaluation note Note Date & Type Note Facility Evaluation note No Information [employer] Other Evaluation note Note Date & Type Note Facility Evaluation note No assessment information availa [facility] Work Phone: History general Narrative - Reported Note Date & Type Note Facility History general Narrative - Reported Type Medical History Hypertension Medical History Thyroid nodule Medical History Loud snoring Medical History Fatigue Medical History Fibromyalgia Surgical History tubal ligation Surgical History wisdom teeth Surgical History wrist surgery LT Hospitalization History SEE SURGICAL HX [facility] Other Summary Purpose Family History Relationship Condition [...] BE BASED ON THE PRIMARY CLINICAL RECORDS. [employer] [facility]. provides no warranty or guarantee of the accuracy or completeness of information in this document.
== END 2024-07-15 10:00 | disposition home or self-care (01) ==
LOC: RAD 10:01
PROVIDERS: PCP Family Medicine; Visit Provider Nurse Practitioner Family
DX: J06.9 Acute upper respiratory infection, unspecified (principal)
CPT/HCPCS: 71046

== ENCOUNTER 2024-12-04 08:16 | Outpatient (OUT) | payer MEDICARE, SELFPAY ==
--- NOTE | 2024-12-04 08:21 | MM_ITS ---
Patient Name: ADY MEADOWS MR#: [id number] : 1955 Exam Date: 12/04/2024 Ordering Doctor: DR Cindi Kirk M.D. RADIOLOGY REPORT PROCEDURE: MM TOMOSYNTHESIS SCREENING BI COMPARISON: MG MAMM SCREEN ARCENIO W CAD, 12/11/2016. MM TOMOSYNTHESIS SCREENING BI, 11/11/2023. INDICATIONS: Screening Calculator Name NCI Breast Cancer Risk Assessment Tool 5 Year Breast Cancer Risk 1.60% Lifetime Breast Cancer Risk 4.30% Personal Breast Cancer No Personal Ovarian Cancer No Treatments None Family Cancers Sister with uterine cancer at age 23. LOCATION: [facility] BREAST COMPOSITION: The breasts are extremely dense, which lowers the sensitivity of mammography. FINDINGS: DIAGNOSTIC CATEGORY 2--BENIGN FINDING. NO CHANGE FROM COMPARISON. Scattered benign-appearing nodules are present. Scattered benign-appearing calcifications are present. Scattered benign-appearing lymph nodes are present. RIGHT BREAST: No significant suspicious finding. LEFT BREAST: No significant suspicious finding. RECOMMENDATIONS: ROUTINE MAMMOGRAM AND CLINICAL EVALUATION IN 12 MONTHS. PLEASE NOTE: A NORMAL MAMMOGRAM DOES NOT EXCLUDE THE POSSIBILITY OF BREAST CANCER. A CLINICALLY SUSPICIOUS PALPABLE LUMP SHOULD BE BIOPSIED. Dictated by: Rohan Myers MD on 12/04/2024 at 10:04 Approved by: Rohan Myers MD on 12/04/2024 at 10:16
--- OUTSIDE RECORDS SUMMARY | 2024-12-04 08:23 | XMS_ITS | CCD ---
Author Organization [facility] Care Team Providers Care Marketing Associate Name Role Phone MIKE, DR IVAN Consulting [...] / oxyCODONE Drug Allergy 04-06-20 15 [facility] Repository (2 sources) Sulfonamides (Antibiotic) Drug allergy (disorder) 10-31-20 14 [facility] Rep[facility] (7 sources) Sulfacetamide Drug Allergy 07-04-20 Unknown, [facility] (3 sources) Allergies Reconciled Propensity to adverse reactions Unknown [facility] Other (3 sources) Substance with sulfonamide structure and antibacterial mechanism of action (substance) Drug allergy Unknown [facility] Other (3 sources) Sulf-10 Drug allergy HIVES/VOMITING [facility] Other (4 sources) Sulfonamides (Antibiotic) Allergy to substance 07-04-20 [facility] Medications Current Medications Medication Drug Class(es) Dates Sig (Normalized) Sig (Original) [id number] 200 actuat albuterol 0.09 mg/actuat metered dose inhaler (4 sources) beta2-Adrenergic Agonist Start: 07-04-20 take 1 puff(s) [...] for 7 days 10 Sep, 2018 Active doxycycline monohydrate 100 mg oral tablet (1 source) Tetracycline-clas s Drug Start: 08-05-20 24 take 100 mg by mouth twice daily Doxycycline Monohydrate Active 100 MG PO Twice daily 20 August 05, 2024 12:00am fluticasone (3 sources) Corticosteroid Start: 01-13-20 22 Fluticasone Propionate 50MCG/ACT Fluticasone Propionate 50MCG/ACT, 2 (two) Calcium daily # 1, 01/12/2022, Ref. x1. Active Nasal daily for 0 *Pick strength-form from [employer] for eRX* Jan, Active Fluticasone Propion-Salmeterol (1 source) Corticosteroid, beta2-Adrenergic Agonist Start: 08-05-20 24 take 1 puff(s) by inhalation twice daily Fluticasone Propion-Salmeterol (Advair Hfa) 115-21 mcg/actuation HFA aerosol inhaler Active 2 PUFF INHALATION Twice daily August 05, 2024 12:00am hydroCHLOROthiazide 25 mg oral tablet (11 sources) Thiazide Diuretic Start: 02-05-20 24 take 1 tablet by mouth once daily Hydrochlorothiazide Active 0 .ROUTE .COMPLEX 90 February 05, 2024 12:55pm Take 1 tablet by mouth once daily Start: 02-05-2024 End: 02-05-2024 take 25 mg by mouth once daily Hydrochlorothiazide Discontinued 25 MG PO Daily February 05, 2024 12:00am February 05, 2024 12:55pm take 1 tablet by obie th once daily hydroCHLOROthiazide 25 MG Take 1 tablet by mouth once daily Active Inhalational Spacing Device (Aerochamber Mv) spacer (1 source) Start: 08-05-2024 Inhalational Spacing Device (Aerochamber Mv) spacer Active 0 .ROUTE .MEDSUPPLY August 05, 2024 12:00am As directed losartan potassium 100 mg oral tablet (20 sources) Angiotensin 2 Receptor Berta Start: 02-05-2024 [...] No Refill. Active oral daily *Reorder from [employer] for eRx and Interaction Alerts* Aug, Active Multivitamins (3 sources) Multivitamins Ac tive Completed/Discontinued Medications Medication Drug Class(es) Dates Sig (Normalized) Sig (Original) Azithromycin (3 sources) Macrolide Antimicrobial Start: 07-15-2024 End: 07-28-2024 Azithromycin Discontinued 0 PO daily 6 July 15, 2024 12:00am July 28, 2024 10:13am Take 2 on day 1 and then take 1 for the next 4 days (days 2-5) Start: 07-15-2024 Azithromycin A ctive 0 PO daily 6 July 15, 2024 12:00am Take 2 on day 1 and then take 1 for the next 4 days (days 2-5) benzonatate 200 mg oral capsule (3 sources) Non-narcotic Antitussive Start: 07-15-2024 End: 08-05-2024 take 200 mg by mouth three times daily Benzonatate Discontinued 200 MG PO Three times daily 30 July 15, 2024 12:00am August 05, 2024 10:41am methylPREDNISolone 4 mg oral tablet (1 source) Corticosteroid Start: 07-28-2024 End: 08-05-2024 take 1 tablet by mouth once Methylprednisolone (Medrol (Jhonatan)) 4 mg tablets,dose pack Discontinued 0 PO per package directions July 28, 2024 12:00am August 05, 2024 10:41am PO PER PKG DIR for 6 days predniSONE 20 mg oral tablet (4 sources) Start: 07-04-2024 End: 07-15-2024 take 3 tablets by mouth once daily, then take 2 tablets by mouth once daily, then take 1 tablet by mouth once daily Prednisone Discontinued 20 MG PO .COMPLEX July 04, 2024 12:00am July 15, 2024 1:53pm Take 3 tabs po daily x 3 [...] Episodic Chronic obstructive pulmonary disease and bronchiectasis (11 sources) Bronchitis; Translations: [Bronchitis, not specified as acute or chronic] 07-15-2024 Episodic Essential hypertension (3 sources) Essential hypertension; [...] (3 sources) Fibromyalgia; Translations: [Fibromyalgia] Episodic Other infections; including parasitic (2 sources) Personal history of other infectious and parasitic diseases; Translations: [History of COVID-19] 08-05-2024 Episodic Other lower respiratory disease (6 sources) Snoring; Translations: [Snoring] Episodic Other nutritional; endocrine; and metabolic disorders (3 sources) Body mass index 25-29 - overweight; Translations: [Body mass index (BMI) 28.0-28.9, adult] Episodic Other upper respiratory infections (6 sources) Viral upper respiratory tract infection; Translations: [Acute upper respiratory infection, unspecified] 07-04-2024 Episodic Otitis media and related conditions (3 [...] Results Test Name Value Interpretation Reference Range Facility Basophils Auto (Bld) [#/Vol] on 07-10-2024 Basophils (Bld) [#/Vol] 0.1 10 3/uL 0.0-0.1 [facility] Basophils/100 WBC Auto (Bld) on 07-10-2024 Basophils/100 WBC (Bld) 0.6 % 0.2-2.0 [facility] Eosinophils/100 WBC Auto (Bl d)on 07-10-2024 Eosinophils/100 WBC (Bld) 3.4 % 0.9-7.0 [facility] Erythrocyte distribution wid th Auto (RBC) [Ratio]on 07-10-2024 Erythrocyte distribution width (RBC) [Ratio] 13.7 % 11.0-15.0 [facility] Estimated glomerular filtrat ion rate (GFR) non- Americanon 07-10-2024 GFR/1.73 sq M.predicted among non-blacks MDRD (S/P/Bld) [Vol rate/Area] mL/min/{1.73_m2} >=60 [facility] Hematocrit Auto (Bld) [Volum e fraction]on 07-10-2024 Hematocrit (Bld) [Volume fraction] 39.1 % 36.0-48.0 [facility] Hemoglobin [Mass/volume] in Bloodon 07-10-2024 Hemoglobin (Bld) [Mass/Vol] 13.5 g/dL 12.0-16.0 [facility] Laboratory - Chemistry and C hemistry - challengeon 07-10-2024 Calcium [Mass/Vol] 9.2 mg/dL 8.5-10.1 [facility] Chloride [Moles/Vol] 102 mmol/L 98-107 [facility] CO2 [Moles/Vol] 26.5 mmol/L 21.0-32.0 [facility] Creatinine [Mass/Vol] 0.80 mg/dL 0.55-1.02 [facility] GFR/1.73 sq M.predicted MDRD (S/P/Bld) [Vol rate/Area] mL/min/{1.73_m2} >=60 [facility] Glucose [Mass/Vol] 92 mg/dL 74-106 [facility] Potassium [Moles/Vol] 3.1 mmol/L Low 3.5-5.1 [facility] Sodium [Moles/Vol] 139 mmol/L 136-145 [facility] Urea nitrogen [Mass/Vol] 20.0 mg/dL High 7.0-18.0 [facility] Urea nitrogen/Creatinine [Mass ratio] 25.0 mg/mg [facility] Laboratory - Hematology and Cell countson 07-10-2024 Immature granulocytes/100 WBC (Bld) 0.5 % 0.0-0.5 [facility] - Microbiology an d Antimicrobial susceptibilityon 07-10-2024 SARS-CoV-2 (COVID-19) RNA TANNA+probe Ql (Unsp spec) Positive Abnormal NEGATIVE [facility] Comment on above: RESULTS CALLED TO Devin VOGEL test has not been FDA cleared or approved, but has beenauthorized by the FDA under an Emergency Use Authorization(EUA) for use by authorized laboratories certified underIA that meet the requirements to perform moderate or highcomplexity testing. This test has been authorized only forthe detection of proteins from SARS-CoV-2, not for any otherviruses or pathogens. The emergency use of this test isauthorized for the duration of the declaration thatcircumstances exist justifying the authorization ofemergency use of in vitro diagnostic tests for detectionand/or diagnosis of Covid-19 under section 564(b)(1) of theAct, 21 U.S.C. 360bbb-3(b)(1), unless the declaration isterminated or authorization is revoked sooner. Leukocytes [#/volume] correc luma for nucleated erythrocytes in Blood by Automated counon 07-10-2024 WBC corrected for nucl RBC Auto (Bld) [#/Vol] 8.6 10 3/uL 4.0-11.0 [facility] Lymphocytes Auto (Bld) [#/Vo l]on 07-10-2024 Lymphocytes (Bld) [#/Vol] 3.1 10 3/uL 1.2-3.8 [facility] Lymphocytes/100 WBC Auto (Bl d)on 07-10-2024 Lymphocytes/100 WBC (Bld) 35.9 % 20.5-60.0 [facility] MCH Auto (RBC) [Entitic mass ]on 07-10-2024 MCH (RBC) [Entitic mass] 32.8 pg 26.7-34.0 [facility] MCHC Auto (RBC) [Mass/Vol]on 07-10-2024 MCHC (RBC) [Mass/Vol] 34.5 g/dL 29.9-35.2 [facility] MCV Auto (RBC) [Entitic vol] on 07-10-2024 MCV (RBC) [Entitic vol] 94.9 fL 81.0-99.0 [facility] Monocytes Auto (Bld) [#/Vol] on 07-10-2024 Monocytes (Bld) [#/Vol] 1.1 10 3/uL High 0.3-0.8 [facility] Monocytes/100 WBC Auto (Bld) on 07-10-2024 Monocytes/100 WBC (Bld) 12.4 % High 1.7-12.0 [facility] Neutrophils Auto (Bld) [#/Vo l]on 07-10-2024 Neutrophils (Bld) [#/Vol] 4.1 10 3/uL 1.4-6.5 [facility] Neutrophils/100 WBC Auto (Bl d)on 07-10-2024 Neutrophils/100 WBC (Bld) 47.2 % 43.0-75.0 [facility] No Panel Informationon 07-10 Eosinophils # (Auto) 0.3 10 3/uL 0.0-0.7 [facility] Immature Granulocyte # (Auto) 0.04 10 3/uL High 0.00-0.03 [facility] Platelet mean volume Auto (B ld) [Entitic vol]on 07-10-2024 Platelet mean volume (Bld) [Entitic vol] 10.4 fL 9.5-13.5 [facility] Platelets Auto (Bld) [#/Vol] on 07-10-2024 Platelets (Bld) [#/Vol] 305 10 3/uL 150-450 [facility] RBC Auto (Bld) [#/Vol]on RBC (Bld) [#/Vol] 4.12 10 6/uL Low 4.20-5.40 [facility] Serum or plasma anion gap de terminationon 07-10-2024 Anion gap [Moles/Vol] 13.6 mmol/L [facility] Influenza virus B Ag [Presen ce] in Upper respiratory specimen by Rapid immunoassayon 07-04-2024 FLUBV Ag IA.rapid Ql (Nph) Negative [facility] No Panel Informationon 07-04 Influenza Type A (Rapid) Negative [facility] POC SARS CoV-2 Antigen Negative [facility] Respiratory specimen 2019 no alexis coronavirus RNA detection by probe and target amplifion 07-04-2024 SARS-CoV-2 (COVID-19) RNA TANNA+probe Ql (Resp) Negative [facility] Covid-19 PCR (CVDTBH)on 08-04 SARS-CoV-2 (COVID-19) RNA TANNA+probe Ql (Unsp spec) Not detected Normal NOT DETECTED [facility] Comment on above: Result Comment: This test is not yet approved or cleared by the [place] FDA. When there are no FDA-approved or cleared tests available, and other criteria are met, FDA can make tests available under an emergency access mechanism called an Emergency Use Authorization (EUA). The EUA for this test is supported by the [place] of Health and Human Service's (HHS's) declaration [...] consistent with SARS-CoV-2. Performed By: #### C VDTB #### [facility] [address] [place] [address] Dr. Gurmeet Hart CBC AUTO DIFFon 03-09-2021 BASO # 0.1 103/ul Normal 0.0-0.1 [facility] Comment on above: Performed By: #### C BC #### [facility] [address] [place] [address] Jose C Walsh Basophils/100 WBC (Bld) 1.0 % Normal 0.2-2.0 [facility] Comment on above: Performed By: #### C BC #### [facility] [address] [place] [address] Jose C Jillian EO # 0.1 103/ul Normal 0.0-0.7 [facility] Comment on above: Performed By: #### C BC #### [facility] [address] [place], [place] [phone] Jose C Jillian Eosinophils/100 WBC (Bld) 1.2 % Normal 0.9-7.0 [facility] Comment on above: Performed By: #### C BC #### [facility] [address] [place] [address] Jose C Jillian Erythrocyte distribution width (RBC) [Ratio] 13.5 % Normal 11.0-15.0 [facility] Comment on above: Performed By: #### C BC #### [facility] [address] [place] [address] Jose C Jillian Hematocrit (Bld) [Volume fraction] 40.3 % Normal 36.0-48.0 [facility] Comment on above: Performed By: #### C BC #### [facility] [address] [place], [place] [phone] Jose C Jillian Hemoglobin (Bld) [Mass/Vol] 13.4 g/dL Normal 12.0-16.0 [facility] Comment on above: Performed By: #### C BC #### [facility] [address] [place] [address] Jose C Jillian IG # 0.01 10e3/ul Normal 0.00-0.03 [facility] Comment on above: Performed By: #### C BC #### [facility] [address] [place] [address] Jose C Jillian IG % 0.2 % Normal 0.0-0.5 [facility] Comment on above: Performed By: #### C BC #### [facility] [address] [place], [place] [phone] Jose C Jillian LYMPH # 1.5 103/ul Normal 1.2-3.8 [facility] Comment on above: Performed By: #### C BC #### [facility] [address] [place] [address] Jose C Jillian Lymphocytes/100 WBC (Bld) 31.4 % Normal 20.5-60.0 [facility] Comment on above: Performed By: #### C BC #### [facility] [address] [place], [place] [phone] Jose C Jillian MANUAL DIFF REQ NO Normal [facility] Comment on above: Performed By: #### C BC #### [facility] [address] [place], [place] [phone] Jose Cdora Cruzen MCH (RBC) [Entitic mass] 31.2 pg Normal 26.7-34.0 [facility] Comment on above: Performed By: #### C BC #### [facility] [address] [place] [address] Jose Cdora Walsh MCHC (RBC) [Mass/Vol] 33.3 g/dL Normal 29.9-35.2 [facility] Comment on above: Performed By: #### C BC #### [facility] [address] [place] [address] Jose C Jillian MCV (RBC) [Entitic vol] 93.7 fL Normal 81.0-99.0 [facility] Comment on above: Performed By: #### C BC #### [facility] [address] [place], [place] [phone] Jose C Jillian MONO # 0.6 103/ul Normal 0.3-0.8 [facility] Comment on above: Performed By: #### C BC #### [facility] [address] [place] [address] Jose C Jillian Monocytes/100 WBC (Bld) 11.8 % Normal 1.7-12.0 [facility] Comment on above: Performed By: #### C BC #### [facility] [address] [place], [place] [phone] Jose C Jillian NEUT # 2.7 103/ul Normal 1.4-6.5 [facility] Comment on above: Performed By: #### C BC #### [facility] [address] [place], [place] [phone] Jose C Jillian Neutrophils/100 WBC (Bld) 54.4 % Normal 43.0-75.0 [facility] Comment on above: Performed By: #### C BC #### [facility] [address] [place] [id number] Jose C Jillian Platelet mean volume (Bld) [Entitic vol] 10.5 fL Normal 9.5-13.5 [facility] Comment on above: Performed By: #### C BC #### [facility] [address] [place], [place] [phone] Jose C Jillian PLT 232 103/ul Normal 150-450 [facility] Comment on above: Performed By: #### C BC #### [facility] [address] [place], [place] [phone] Jose C Jillian RBC 4.30 106/ul Normal 4.20-5.40 [facility] Comment on above: Performed By: #### C BC #### [facility] [address] [place], [place] [phone] Jose C Jillian WBC 4.9 103/ul Normal 4.0-11.0 [facility] Comment on above: Performed By: #### C BC #### [facility] [address] [place], [place] [phone] Jose C Jillian PROF CHEM 8 (BAS METB)on Anion gap [Moles/Vol] 10.2 mmol/L Normal [facility] Comment on above: Performed By: #### B OSMANY HSTROPN #### [facility] [address] [place], [place] [phone] Jose C Jillian Calcium [Mass/Vol] 9.5 mg/dL Normal 8.4-10.2 [facility] Comment on above: Performed By: #### B OSMANY HSTROPN #### [facility] [address] [place], [place] [phone] Jose C Jillian Chloride [Moles/Vol] 105 mmol/L Normal 98-107 [facility] Comment on above: Performed By: #### B OSMANY HSTROPN #### [facility] [address] [place], [place] [phone] Jose C Jillian CO2 [Moles/Vol] 30.9 mmol/L Critically high 22.0-30.0 [facility] Comment on above: Performed By: #### B OSMANY, HSTROPN #### [facility] [address] [id number] Jose C Jillian Creatinine [Mass/Vol] 0.67 mg/dL Normal 0.52-1.04 [facility] Comment on above: Performed By: #### B OSMANY, HSTROPN #### [facility] [address] [id number] Jose C Jillian EGFR-AF MAURITANIAN >60 Normal >=60 [facility] Comment on above: Performed By: #### B OSMANY, HSTROPN #### [facility] [address] [id number] Jose C Jillian EGFR-NON AF MAURITANIAN >60 Normal >=60 [facility] Comment on above: Performed By: #### B OSMANY, HSTROPN #### [facility] [address] [place] [address] Jose C Jillian Glucose [Mass/Vol] 81 mg/dL Normal 74-106 [facility] Comment on above: Performed By: #### B OSMANY, HSTROPN #### [facility] [address] [place], [place] [phone] Jose C Jillian Potassium [Moles/Vol] 4.1 mmol/L Normal 3.4-5.0 [facility] Comment on above: Performed By: #### B OSMANY, HSTROPN #### [facility] [address] [place] [address] Jose C Jillian Sodium [Moles/Vol] 142 mmol/L Normal 137-145 [facility] Comment on above: Performed By: #### B OSMANY, HSTROPN #### [facility] [address] [phone] Jose C Jillian Urea nitrogen [Mass/Vol] 23.0 mg/dL Critically high 7.0-17.0 [facility] Comment on above: Performed By: #### B OSMANY, HSTROPN #### [facility] [address] [phone] Jose C Jillian Urea nitrogen/Creatinine [Mass ratio] 34.3 mg/mg Normal [facility] Comment on above: Performed By: #### B OSMANY, HSTROPN #### [facility] [address] [place] [address] Jose C Walsh TROPONIN, HIGH SENSITIVITYon 03-09-2021 HSTROP 7.5 pg/mL Normal 4.0-35.5 [facility] Comment on above: Result Comment: CUT- OFF POINTS HAVE BEEN ESTABLISHED BASED ON THE FOURTH UNIVERSAL DEFINITIONS OF MYOCARDIAL INFARCTION. THE UPPER REFERENCE LIMIT (URL) OF TROPONIN, DEFINED THE 99TH PERCENTILE OF cTnI DISTRIBUTION IN A REFERENCE POPULATION, HAS BEEN CONFIRMED THE DECISION THRESHOLD FOR PR DIAGNOSIS. Performed By: #### B OSMANY HSTROPN #### [facility] [address] [place] [address] Jose C Walsh Covid-19 PCR (CVDTBH)on 10-05 EUA Statement SEE BELOW Normal [facility] Comment on above: Result Comment: This test is not yet approved or cleared by the [place] FDA. When there are no FDA-approved or cleared tests available, and other criteria are met, FDA can make tests available under an emergency access mechanism called an Emergency Use Authorization (EUA). The EUA for this test is supported by the Data Review Specialist of Health and Human Service?s (HHS?s) declaration [...] consistent with SARS-CoV-2. Performed By: #### C VDTBH #### [facility] [address] [address] Jose C Walsh SARS-CoV-2 (COVID-19) RNA TANNA+probe Ql (Unsp spec) Detected Abnormal NOT DETECTED [facility] Comment on above: Result Comment: This test is not yet approved or cleared by the [place] FDA. When there are no FDA-approved or cleared tests available, and other criteria are met, FDA can make tests available under an emergency access mechanism called an Emergency Use Authorization (EUA). The EUA for this test is supported by the Data Review Specialist of Health and Human Service's (HHS's) declaration [...] longer be used). Performed By: #### C [facility] #### [facility] [address] [place] [address] Jose C Walsh Vital Signs Date Time Vital Sign Value Performing Clinician Faci lity 08-05-2024 10:38-0400 Body height 166.37 cm [facility] 08-05-2024 10:38-0400 Body mass index (BMI) [Ratio] 28.6 kg/m2 [facility] 08-05-2024 10:38-0400 Body temperature 96.5 [degF] [facility] 08-05-2024 10:38-0400 Body weight 79.37 kg [facility] 08-05-2024 10:38-0400 Diastolic blood pressure 84 mm[Hg] [facility] 08-05-2024 10:38-0400 Heart rate 77 /min [facility] 08-05-2024 10:38-0400 SaO2% (BldA) [Mass fraction] 96 % [facility] 08-05-2024 10:38-0400 Systolic blood pressure 138 mm[Hg] [facility] 07-28-2024 09:52-0400 Body height 166.37 cm [facility] 07-28-2024 09:52-0400 Body mass index (BMI) [Ratio] 32.4 kg/m2 [facility] 07-28-2024 09:52-0400 Body weight 89.81 kg [facility] 07-28-2024 09:52-0400 Diastolic blood pressure 80 mm[Hg] [facility] 07-28-2024 09:52-0400 Heart rate 67 /min [facility] 07-28-2024 09:52-0400 SaO2% (BldA) [Mass fraction] 97 % [facility] 07-28-2024 09:52-0400 Systolic blood pressure 122 mm[Hg] [facility] 07-15-2024 13:51-0400 Body height 166.37 cm [facility] 07-15-2024 13:51-0400 Body mass index (BMI) [Ratio] 28.5 kg/m2 [facility] 07-15-2024 13:51-0400 Body temperature 97.7 [degF] [facility] 07-15-2024 13:51-0400 Body weight 79.15 kg [facility] 07-15-2024 13:51-0400 Diastolic blood pressure 82 mm[Hg] [facility] 07-15-2024 13:51-0400 Heart rate 64 /min [facility] 07-15-2024 13:51-0400 Respiratory rate 16 /min [facility] 07-15-2024 13:51-0400 SaO2% (BldA) [Mass fraction] 96 % [facility] 07-15-2024 13:51-0400 Systolic blood pressure 132 mm[Hg] [facility] 07-04-2024 09:45-0400 Body height 166.37 cm [facility] 07-04-2024 09:45-0400 Body mass index (BMI) [Ratio] 29.5 kg/m2 [facility] 07-04-2024 09:45-0400 Body temperature 96.2 [degF] [facility] 07-04-2024 09:45-0400 Body weight 81.64 kg [facility] 07-04-2024 09:45-0400 Diastolic blood pressure 61 mm[Hg] [facility] 07-04-2024 09:45-0400 Heart rate 64 /min [facility] 07-04-2024 09:45-0400 Respiratory rate 18 /min [facility] 07-04-2024 09:45-0400 SaO2% (BldA) [Mass fraction] 96 % [facility] 07-04-2024 09:45-0400 Systolic blood pressure 144 mm[Hg] [facility] Encounters Encounter Date Encounter Type Care Provider Facility Start: 08-05-2024 End: 08-05-2024 ambulatory [facility] Work Phone: Start: 08-05-2024 End: 08-05-2024 Patient encounter procedure [facility] Work Phone: Start: 07-28-2024 End: 07-28-2024 ambulatory [facility] Work Phone: Start: 07-28-2024 End: 07-28-2024 Patient encounter procedure [facility] Work Phone: Start: 07-15-2024 End: 07-15-2024 ambulatory [facility] Work Phone: Start: 07-15-2024 End: 07-15-2024 Patient encounter procedure [facility] Work Phone: Start: 07-10-2024 Non-patient / Non-visit [facility] Work Phone: Start: 07-04-2024 End: 07-04-2024 ambulatory [facility] Work Phone: Start: 07-04-2024 End: 07-04-2024 Patient encounter procedure [facility] Work Phone: Start: 11-19-2023 End: 11-19-2023 ambulatory Cindi Kirk Other [facility] Other Start: 11-19-2023 Telephone encounter Cindi Kirk [facility] Start: 11-11-2023 End: 11-11-2023 ambulatory Cindi Kirk Other [facility] Other Start: 11-11-2023 Telephone encounter Cindi Mckeon [facility] Start: 08-15-2021 End: 08-15-[address] MONCHO MCKEON Facility:H1 Start: 07-24-[address] CINDI KIRK [facility] ity:H1 Start: 03-09-2021 End: 03-10-[address] CINDI KIRK Facility:[facility]1 Start: 10-31-2020 End: 10-31-2020 ambulatory KRISTINA ARTURO Facility:H1 Payers Date Payer Category Payer Unknown [id number] 1955 Unknown [id number] 1955 Unknown [id number] [id number] [id number] 1955 Unknown [id number] [id number] [id number] 1955 Unknown [id number] [id number] Medicare Medicare [id number] Medicare Medicare-OP No Part B [id number] Self-pay Self Pay [id number] Social History Date Type Detail Facility Unknown if ever smoked [facility] Other Sex Assigned At Sex Assigned At Bir th [employer] Other Start: 07-04-2024 Tobacco smoking status NHIS Never smoked tobacco (finding) [facility] Start: 1955 Sex Assigned At Female F [facility] Evaluation note Note Date & Type Note Facility Evaluation note No Information [facility] Other Evaluation note Note Date & Type Note Facility Evaluation note No assessment information availa ble [facility] Work Phone: Evaluation note Note Date & Type Note Facility Evaluation note Diagnosis Onset Date Viral URI with cough acute Bronchitis, not specified as acute or chronic acute [facility] Work Phone: Evaluation note Note Date & Type Note Facility Evaluation note Diagnosis Onset Date Viral URI with cough acute Bronchitis, not specified as acute or chronic acute Bronchitis, not specified as acute or chronic acute Bronchitis, not specified as acute or chronic acute History of COVID-19 acute [facility] Work Phone: History general Narrative - Reported Note Date & Type Note Facility History general Narrative - Reported Type Medical History Hypertension Medical History Thyroid nodule Medical History Loud snoring Medical History Fatigue Medical History Fibromyalgia Surgical History tubal ligation Surgical History wisdom teeth Surgical History wrist surgery LT Hospitalization History SEE SURGICAL HX [facility] Other Summary Purpose Family History Relationship Condition Age at Onset Recorded Date/T sheree brother Unknown father Hypertension Unknown Unknown Heart disease Unknown Malignant neoplasm Unknown mother Heart disease Unknown Diabetes mellitus Unknown Hypertension Unknown sister Malignant neoplasm Unknown Advance Directives Advance Directive Response Recorded Date/ Time Advance Directives No September 9:16am Chief Complaint and Reason for Visit Chief Complaint cough Chief Complaint cough cough Reason for Visit Viral URI with cough Bronchitis, not specified as acute or chronic Chief Complaint cough cough still sick, coughing and heaviness in chest Reason for Visit Viral URI with cough Bronchitis, not specified as acute or chronic Chief Complaint cough cough still sick, coughing and heaviness in chest Coughing/Heaviness in Chest Reason for Visit Viral URI with cough Bronchitis, not specified as acute or chronic Bronchitis, not specified as acute or chronic Bronchitis, not specified as acute or chronic History of COVID-19 Additional Source Comments INFORMATION SOURCE (unrecogn ized [...] July 04, 2024 End: July 04, 2024 Team Status: Active Member Role Status Dates PHYSICIAN NO FAMILY Primary Care Provider Active Start: July 10, 2024 Chucho Maradiaga MD Attending Provider Active St art: July 10, 2024 Team Status: Inactive Member Role Status Dates PHYSICIAN NO FAMILY Primary Care Provider Active Start: July 15, 2024 End: July 15, 2024 NAM Aldridge Attending Provider Active Start: July End: July 15, 2024 Team Status: Inactive Member Role Status Dates PHYSICIAN NO FAMILY Primary Care Provider Active Start: July 28, 2024 End: July 28, 2024 Cindi Kirk MD Attending Provider Active St art: July 28, 2024 End: July 28, 2024 Team Status: Inactive Member Role Status Dates PHYSICIAN NO FAMILY Primary Care Provider Active Start: August 05, 2024 End: August 05, 2024 NAM Aldridge Attending Provider Act lino Start: August 05, 2024 End: August 05, 2024 Goals (unrecognized section and content) Goals [...] BE BASED ON THE PRIMARY CLINICAL RECORDS. [employer] provides no warranty or guarantee of the accuracy or completeness of information in this document.
[2024-12-04 09:34] LABS: Anion Gap 9.2; BUN Creatinine Ratio 24.7; Calcium 9.1 mg/dL (8.5-10.1); Carbon Dioxide 31.3 mmol/L (21.0-32.0); Chloride 108 mmol/L (98-107); Estimated GFR (African America >60 (>=60 mL/min/1.73m^2); Estimated GFR (Non-African Ame >60 (>=60 mL/min/1.73m^2); Glucose 96 mg/dL (74-106); Potassium 3.5 mmol/L (3.5-5.1); Sodium 145 mmol/L (136-145)
== END 2024-12-04 08:17 | disposition home or self-care (01) ==
LOC: MAMMO 08:16
PROVIDERS: PCP Family Medicine; Visit Provider Family Medicine
DX: Z12.31 Encounter for screening mammogram for malignant neoplasm of breast (principal); I10 Essential (primary) hypertension; Z80.8 Family history of malignant neoplasm of other organs or systems
CPT/HCPCS: 36415; 77063; 77067; 80048

== ENCOUNTER 2025-04-26 12:25 | Outpatient (OUT) | payer MEDICARE, SELFPAY ==
--- OUTSIDE RECORDS SUMMARY | 2025-04-26 12:32 | XMS_ITS | Clinical Summary ---
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 Name Role Phone Unavailable Primary Care Provider Unavailabl e Social History Tobacco Use Types Packs/Day Years Used Date Smoking Tobacco: Never Assessed Comments Unknown Sex and Gender Information Value Date Recorded Sex Assigned at Not on file Legal Sex Female 7:06 PM EDT Gender Identity Not on file Sexual Orientation Not on file Last Filed Vital Signs Vital Sign Reading Time Taken Comments Blood Pressure 132/84 01/12/2021 12:00 PM EST Pulse - - Temperature - - Respiratory Rate - - Oxygen Saturation - - Inhaled Oxygen Concentration - - Weight 77.1 kg (170 lb) 01/12/2021 12:00 PM EST Height 163.2 cm (5' 4.25 ) 01/12/2021 12:[address] Body Mass Index 28.95 01/12/2021 12:00 PM EST Plan of Treatment Health Maintenance Due Date Last Done Comments CT Colonography 1955 FIT-DNA 1955 FIT 1955 FOBT 1955 Sigmoidoscopy 1955 Mammogram 11/28/2021 11/28/2020, 09/05, 05/23/2018 Influenza Vaccine (Season Ended) 2025 12/01/19 11 Colonoscopy 02/07/2026 02/08/2016 Colorectal Cancer Screening 02/07/2026 Pneumococcal Vaccine: 65+ Years Completed 8, 01/13/2016 Procedures Procedure Name Priority Date/Time Associated Diagnosis Comments BI MAMMOGRAM SCREENING TOMOSYNTHESIS BILATERAL Routine 11/28/2020 Encounter for screening mammogram for malignant neoplasm of breast COLONOSCOPY Routine 02/08/2016 12:00 PM EDT from Last 3 Months or Most Recently Relevant to Health Maintenance Results * Bilateral screening mammogram with tomosynthesis (11/28/2020) Anatomical Region Laterality Modality Breast Bilateral Mammography Impressions 11/28/2020 12:00 AM EST CATEGORY 2 : Benign Board Certified Radiologist. Accredited by the ACR and FDA. MAMMOGRAPHY IS VERY IMPORTANT TO YOUR HEALTH. THE CURRENT [place] [employer] OF [employer] AND NATIONAL COMPREHENSIVE CANC[employer] NETWORK GUIDELINES RECOMMENDS ANNUAL MAMMOGRAPHY BEGINNING AT AGE 40. THIS FACILITY USES A REMINDER SYSTEM TO ENSURE ALL PATIENTS RECEIVE REMINDER NOTIFICATIONS AT THE APPROPRIATE TIME BASED ON THE RECOMMENDATIONS OF THIS EXAM. Report reported and signed by Thaddeus Pulido on 11/28/2020 1158 Narrative 11/28/2020 12:00 AM EST PERFORMED AT [facility] LOCATION:[place] [address] COMPARISON: Dating back to September 30, 2019 and May 20, 2018 TECHNIQUE: 2D and 3D Tomosynthesis of the right and left breasts was performed. FINDINGS: Breast composition demonstrates heterogeneously dense parenchyma, stable. Typically benign calcifications. No suspicious microcalcifications, asymmetry, architectural distortion or associated features are present. Procedure Note CONVERSION, GENERIC - 05/10/2023 PERFORMED AT [facility] LOCATION:[place] [address] COMPARISON: Dating back to September 30, 2019 and May 20, 2018 TECHNIQUE: 2D and 3D Tomosynthesis of the right and left breasts wasperformed. FINDINGS: Breast composition demonstrates heterogeneously dense parenchyma, stable.Typically benign calcifications. No suspicious microcalcifications, asymmetry,architectural distortion or associated features are present. IMPRESSION: CATEGORY 2 : Benign Board Certified Radiologist. Accredited by the ACR and FDA. MAMMOGRAPHY IS VERY IMPORTANT TO YOUR HEALTH. THE CURRENT [place] AND NATIONAL COMPREHENSIVE CANC[employer] NETWORK GUIDELINES RECOMMENDS ANNUALMAMMOGRAPHY BEGINNING AT AGE 40. THIS FACILITY USES A REMINDER SYSTEM TO ENSURE ALLPATIENTS RECEIVE REMINDER NOTIFICATIONS AT THE APPROPRIATE TIME BASED ON THERECOMMENDATIONS OF THIS EXAM. Report reported and signed by Thaddeus Pulido on 11/28/2020 1158 us Shante Martinez MD IMG BI PROCEDURES Final Resul t * Colonoscopy (02/08/2016 12:00 PM EDT) Anatomical Region Laterality Modality Endoscopy 02/08/2016 12:0 0 PM EDT Narrative 02/08/2016 12:00 PM EDT PERFORMED AT [facility] LOCATION:[id number] Procedure Note CONVERSION, GENERIC - 03/21/2023 PERFORMED AT [facility] LOCATION:[id number] us Shante Martinez MD ENDOSCOPY PROCEDURE ORDERABLE S Final Result from Last 3 Months or Most Recently Relevant to Health Maintenance Insurance COUNTS INCLUDE 234 BEDS AT THE [facility] MEDICARE ADVANTAGE
--- NOTE | 2025-04-26 12:42 | XR_ITS ---
The [address] [address] Patient Name: ADY MEADOWS MRN: [id number] date: 1955 Sex: F Assigned Patient Location: [facility] Current Patient Location: [facility] Accession/Order Number: [id number] Exam Date: 04/26/2025 13:16 Report Date: 04/26/2025 13:20 At the request of: VIRGINIA SPARKS MD Procedure: XR lumbar spine 2-3V XR lumbar spine 2-3V 04/26/2025 1:02 PM SIGNS AND SYMPTOMS: ^low back pain radiating into both legs PROTOCOLS: Frontal and lateral radiograph the lumbar spine COMPARISON: None FINDINGS: The alignment, development and bony structures are normal. There is no fracture or destructive lesion. Mild disc height loss is noted at L2-L3, L3-4, L4-5, and L5-S1. There is facet hypertrophy throughout. Degenerative changes are noted in the sacroiliac joints. There is an 8 mm radiodense stone in the right renal collecting system. XR/XR lumbar spine 2-3V IMPRESSION: No fracture is unchanged. Mild multilevel degenerative changes noted throughout the lumbar spine. Impression dictated by: Shadi Baker M.D. 04/26/2025 1:20 PM Dictation Location: [place] [address] Electronically authenticated by: [id number] Y Date: 04/26/2025 13:20
== END 2025-04-26 12:26 | disposition home or self-care (01) ==
LOC: RAD 12:30
PROVIDERS: PCP Family Medicine; Visit Provider Family Medicine
DX: M54.50 Low back pain, unspecified (principal); M79.604 Pain in right leg; M79.605 Pain in left leg; M51.369 Other intervertebral disc degeneration, lumbar region without mention of lumbar back pain or lower extremity pain
CPT/HCPCS: 72100

== ENCOUNTER 2025-05-17 13:56 | Outpatient (OUT) | payer MEDICARE, SELFPAY ==
--- NOTE | 2025-05-17 15:05 | PM.CN ---
Consult Note: HPI Data of Consult Patient: new to practice Consult date: 05/17/25 Requesting Physician: Yoav Carr MD Primary Care Provider: Cindi Kirk MD Consult Narrative Reason for consult: low back, bilateral hip and lower extremity pain Narrative: 69yof who presents for evaluation. longstanding history of low back, bilateral hip and leg pain. states very difficult to get a good night's rest. recently completed mdp, which helped significantly. lumbar xr shows multilevel degenerative changes in lower lumbar spine. has engaged in a series of provider directed home exercises >6 weeks, without benefit. uses otc meds as needed. denies adverse med side effects. cc:: CC: Yoav Carr MD Review of Systems ROS Status of ROS 10 or more systems reviewed and unremarkable except as noted in history and below [facility] Medical History Hypertension ?I10 - Essential (primary) hypertension (ICD-10) Social History Little interest or pleasure in doing things: not at all Feeling down, depressed, or hopeless: not at all Meds Home Medications and Allergies Home Medications ?Medication ?Instructions ?Recorded ?Confirmed ?Type albuterol sulfate 90 mcg/actuation inhalation 07/10/24 History aerosol inhaler hydrochlorothiazide 25 mg tablet 25 mg DAILY 07/10/24 History losartan 100 mg tablet 100 mg DAILY 07/10/24 History baclofen 5 mg tablet 5 mg PO DAILY 05/17/25 05/17/25 History Allergies Allergy/AdvReac Type Severity Reaction Status Date / Time Sulfa (Sulfonamide Allergy Rash Verified 07/10/24 05:45 Antibiotics) Exam Narrative Exam Narrative: Psych-alert and oriented x 3. Attentive and appropriate, constitutionally normal, displays normal mood and affect per situation. There are no obvious deficits in memory, reasoning, or intellect.? Skin-no obvious rashes, bruising, erythema noted to the patient's area of pain.? Extremities- extremities are warm with minimal edema and palpable pulses. Lumbar-tenderness to palpation noted in the lumbar spine and paraspinal musculature. Pain is elicited with flexion, extension, and lateral rotation of the lumbar spine. Range of motion is diminished with these motions. Facet loading maneuvers are positive.? Strength-noted to be unremarkable with the exception of decreased strength rated at 4 out of 5 in bilateral quadriceps femoris. Sensory-no notable sensory deficits in the bilateral lower extremities to touch or pinprick in all dermatomal distributions with the exception to decreased sensation to the bilateral L4, 5 dermatomal distribution Coordination remains intact.? Gait remains non-antalgic. Assessment and Plan Assessment and Plan (1) Lumbar stenosis with neurogenic claudication: Plan 69yof who presents for evaluation. failed conservative measures, as noted. imaging reviewed, as noted. given symptoms and imaging, prudent to obtain lumbar mri without contrast for more info. she is in agreement. meds reviewed, will trial baclofen 5mg qhs prn. follow up after imaging.
== END 2025-05-17 13:57 | disposition home or self-care (01) ==
LOC: PM 13:56
PROVIDERS: PCP Family Medicine; Visit Provider Anesthesiology
DX: M48.062 Spinal stenosis, lumbar region with neurogenic claudication (principal)
CPT/HCPCS: G0463

== ENCOUNTER 2025-06-10 08:11 | Outpatient (OUT) | payer MEDICARE, SELFPAY ==
--- NOTE | 2025-06-10 08:18 | MR_ITS ---
The [address] [address] Patient Name: ADY MEADOWS MRN: [facility]:[id number] date: 1955 Sex: F Assigned Patient Location: MRI Current Patient Location: MRI Accession/Order Number: [id number] Exam Date: 06/10/2025 17:50 Report Date: 06/10/2025 18:00 At the request of: JAELYN LU MD Procedure: MR lumbar spine wo con MRI lumbar spine performed without contrast INDICATION: Lumbar stenosis lumbar pain with radiculopathy COMPARISON: X-rays lumbar spine 04/26/2025 FINDINGS: Lumbar vertebral heights are maintained. Mild levocurvature. Diffuse heterogeneous appearance of the marrow signal likely related to multifocal hemangiomas. Diffusely diminished marrow signal background may suggest infiltrate process such as anemia, correlate with CBC and history. There is minimal anterolisthesis L4-L5 2 millimeters. Visualized lower Thoracic and lumbar vertebral heights and intervertebral space heights preserved. Conus medullaris terminates normally at L1-L2. T12-L1: Only visualized on the sagittal images. Suspect minimal broad-based disc bulge and facet arthropathy. No canal or foraminal narrowing identified. L1-2: No significant disease disc protrusion, canal or neural foramen identified. L2-3: Circumferential disc bulge with facet arthropathy. Mild canal and mild foraminal narrowing. L3-4: Mild circumferential bulge with facet arthropathy. Mild central canal and mild foraminal narrowing L4-5: Circumferential disc bulge with moderate facet arthropathy. [id number] neural foraminal narrowing. Mild central stenosis. L5-S1: Circumferential disc bulge with moderate to severe facet arthropathy and trace facet joint effusions. Moderate neural from narrowing. There is minimal crowding left subarticular zone contacting the traversing left S1 nerve root. MR/MR lumbar spine wo con IMPRESSION: Overall mild multilevel degenerative changes predominantly involving posterior elements. No high-grade canal or foraminal narrowing identified. Multifocal marrow lesions likely due to multifocal hemangiomas. Background of diminished marrow signal posterior to red marrow conversion, correlate with CBC and history. Impression dictated by: Meng Duncan M.D. 06/10/2025 6:00 PM Dictation Location: [place] [address] Electronically authenticated by: [id number] Y Date: 06/10/2025 18:00
--- OUTSIDE RECORDS SUMMARY | 2025-06-10 08:23 | XMS_ITS | Clinical Summary ---
Author Organization [employer] Address [id number] [address] 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 Active hydroCHLOROthia zide (HYDRODIURIL) 12.5 mg tablet Take 12.5 mg by mouth daily. Active acetaminophen (TYLENOL) 325 mg tablet Take 650 mg by mouth every 6 (six) hours as needed for pain. Active ibuprofen (ADVIL,MOTRIN) 200 mg tablet Take 200 mg by mouth every 6 (six) hours as needed for pain. Active naproxen sodium (ALEVE) 220 mg capsule Take 220 mg by mouth in the morning and 220 mg in the evening. Take with meals. Active Active Problems Problem Noted Date Diagnosed Date Age-related nuclear cataract of right eye 2021 Age-related nuclear cataract of left eye 020 Cellulitis of left elbow 05/04/2020 Family History Medical History Relation Name Comments Cancer Father Kidney disease Father Cancer Mother Cancer Sister Relation Name Status Comments Father Mother Sister Social History Tobacco Use Types Packs/Day Years Used Date Smoking Tobacco: Never Smokeless Tobacco: Never Alcohol Use Standard Drinks/Week Comments Yes 0 (1 standard drink = 0.6 oz pur e alcohol) rare Childcare Answer Date Recorded Childcare Unknown 04/15/2019 Employment Answer Date Recorded Employment Unknown 04/15/2019 Purpose - Life Answer Date Recorded Purpose and direction in life Unknown Comments No Sex and Gender Information Value Date Recorded Sex Assigned at Not on file Legal Sex Female 11:43 AM EDT Gender Identity Not on file Sexual Orientation Not on file Last Filed Vital Signs Vital Sign Reading Time Taken Comments Blood Pressure 132/81 09/24/2022 9:16 AM EST Pulse 66 09/24/2022 9:16 AM EST Temperature 36.1 C (97 F) 09/24/2022 7:06 AM EST Respiratory Rate 16 09/24/2022 9:16 AM EST Oxygen Saturation 97% 09/24/2022 9:16 AM EST Inhaled Oxygen Concentration - - Weight 68.9 kg (152 lb) 09/24/2022 7:06 AM EST Height 166.4 cm (5' 5.5 ) 09/24/2022 7:06 AM EST Body Mass Index 24.91 09/24/2022 7:06 AM EST Plan of Treatment Health Maintenance Due Date Last Done Comments Depression Screening 1967 Tobacco Screening 1967 DTaP,Tdap and Td Vaccines (1 - Tdap) 1972 Zoster (Shingles) Vaccine (2 of 3) 03/04/20152014 Fall Risk Screening 2018 Adult BMI Screening 09/24/2023 09/24/2022 COVID-19 Vaccine (2 - season) 07/05/202406/2021 Influenza Vaccine 07/05/2025 Colonoscopy 02/02/2026 02/03/2016 Medical Devices Implanted Type Area Textile Screen Printer Device Identifier Shelf Expiration Date Model / Serial / Lot Lens Iol Ultrasert 17.0d - [id number] - [id number] Implanted:Qty: 1 on 08/20/2022 by Kenrick Caldwell DO at [facility] Lens Left: Eye [employer] 01/18/2025 AU00T0 17.0 / [id number] / Lens Iol Ultrasert 17.0d - [id number] - [id number] Implanted:Qty: 1 on 09/24/2022 by Kenrick Caldwell DO at [facility] Lens Right: Eye [employer] 01/20/2025 [id number] 17.0 / [id number] / NA Insurance [facility]LY [facility]1983 MEDICARE Advance Directives * Full Code (Latest Code Status on File) Date Activated Date Inactivated Comments 05/05/2020 9:13 AM 05/06/2020 1:33 PM Care Teams Straw Hat Presser Relationship Specialty Start Date End Date Shante Martinez MD [address] [place] [address] PCP - General Family Medicine 08/24/19
--- OUTSIDE RECORDS SUMMARY | 2025-06-10 08:23 | XMS_ITS | Clinical Summary ---
Author Organization 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 THE CURRENT [employer] AND NATIONAL COMPREHENSIVE CANC[employer] NETWORK GUIDELINES RECOMMENDS ANNUAL MAMMOGRAPHY BEGINNING AT AGE 40. THIS FACILITY USES A REMINDER SYSTEM TO ENSURE ALL PATIENTS RECEIVE REMINDER NOTIFICATIONS AT THE APPROPRIATE TIME BASED ON THE RECOMMENDATIONS OF THIS EXAM. Report reported and signed by Thaddeus Pulido on 11/28/2020 1158 Narrative 11/28/2020 12:00 AM EST PERFORMED AT [facility] LOCATION:[place] [address] COMPARISON: Dating back to September 30, 2019 and May 20, 2018 TECHNIQUE: 2D and 3D Tomosynthesis of the right and left breasts was performed. FINDINGS: Breast composition demonstrates heterogeneously dense parenchyma, stable. Typically benign calcifications. No suspicious microcalcifications, asymmetry, architectural distortion or associated features are present. Procedure Note CONVERSION, GENERIC - 05/10/2023 PERFORMED AT [facility] LOCATION:[place] [address] COMPARISON: Dating back to September 30, 2019 [...] VERY IMPORTANT TO YOUR HEALTH. THE CURRENT [employer]WORK [...] Narrative 02/08/2016 12:00 PM EDT PERFORMED AT [facility] LOCATION:[id number] Procedure Note CONVERSION, GENERIC - 03/21/2023 PERFORMED AT [facility] LOCATION:[id number] us Shante Martinez MD ENDOSCOPY PROCEDURE ORDERABLE S Final Result from Last 3 Months or Most Recently Relevant to Health Maintenance Insurance [facility] MEDICARE ADVANTAGE
== END 2025-06-10 08:12 | disposition home or self-care (01) ==
LOC: MRI 08:11
PROVIDERS: PCP Family Medicine; Visit Provider Anesthesiology
DX: M48.062 Spinal stenosis, lumbar region with neurogenic claudication (principal); M51.369 Other intervertebral disc degeneration, lumbar region without mention of lumbar back pain or lower extremity pain
CPT/HCPCS: 72148

== ENCOUNTER 2025-06-16 08:52 | Outpatient (OUT) | payer MEDICARE, SELFPAY ==
--- NOTE | 2025-06-16 08:30 | P.CN_ITS ---
Consult Note: HPI Data of Consult Patient: known to practice within the last 3 years Requesting Physician: Glenny Paul NP Primary Care Provider: Cindi Kirk MD Consult Narrative Reason for consult: low back and BLE pain Narrative: Iva Colindres a pleasant 69 year old female presents for evaluation of chronic low back and intermittent lower extremity pain. Pt notes chronic low back pain > 5 years, worsening over the last 4 months without injury or fall. pt has failed to benefit from > 6 weeks of PT, aquatherapy, and home exercise program. she utilizes aleve PRN and baclofen PRN, without side effects. Pain today 4/10 increasing to 10/10 with standing, walking, and at night. recently completed lumbar MRI with results below. cc:: CC: Glenny Paul NP [facility] Medical History Hypertension ?I10 - Essential (primary) hypertension (ICD-10) Social History Little interest or pleasure in doing things: not at all Feeling down, depressed, or hopeless: not at all Meds Home Medications and Allergies Home Medications ?Medication ?Instructions ?Recorded ?Confirmed ?Type albuterol sulfate 90 mcg/actuation inhalation 07/10/24 History aerosol inhaler hydrochlorothiazide 25 mg tablet 25 mg DAILY 07/10/24 History losartan 100 mg tablet 100 mg DAILY 07/10/24 Histo ry baclofen 5 mg tablet 5 mg PO DAILY 05/17/2505/17 History Allergies Allergy/AdvReac Type Severity Reaction Status Date / Time Sulfa (Sulfonamide Allergy Rash Verified 07/10/24 05:45 Antibiotics) Exam Constitutional Documenting provider has reviewed patient's vital signs: yes Common normals: no apparent distress, oriented x3, healthy appearing, alert and well nourished General appearance: cooperative HENMT Common normals: normocephalic, hearing grossly normal bilaterally and moist oral mucous membranes Head and scalp: normocephalic Eye Common normals: PERRL Pupil: PERRL Neck & C-Spine Common normals: full ROM General: normal visual inspection Chest Common normals: inspection of chest normal Respiratory Common normals: normal respiratory effort, no retractions and no use of accessory muscles Back & Pelvis Lumbar spine/lower back: ROM limited, pain with ROM, lumbar spinal tenderness and straight leg raise positive left Sacroiliac joints: SI joint(s) abnormal Other: left> right sij positive samia(patricks), gaenslens, thigh thrust, compression test strength 4/5 in LLE 5/5 in RLE decreased sensation left L4,5,S1 Neuro Common normals: oriented x3 Sensorium/orientation: alert Psych Common normals: mental status grossly normal, thought process normal, cooperative, affect normal, speech normal and activity/motor behavior normal Speech: normal speech Thought process: normal thought process Results Imaging Lumbar MRI : Attestation: I have reviewed the pertinent imaging results. Radiologist's impression: Lumbar vertebral heights are maintained. Mild levocurvature. Diffuse heterogeneous appearance of the marrow signal likely related to multifocal hemangiomas. Diffusely diminished marrow signal background may suggest infiltrate process such as anemia, correlate with CBC and history. There is minimal anterolisthesis L4-L5 2 millimeters. Visualized lower Thoracic and lumbar vertebral heights and intervertebral space heights preserved. Conus medullaris terminates normally at L1-L2. T12-L1: Only visualized on the sagittal images. Suspect minimal broad-based disc bulge and facet arthropathy. No canal or foraminal narrowing identified. L1-2: No significant disease disc protrusion, canal or neural foramen identified. L2-3: Circumferential disc bulge with facet arthropathy. Mild canal and mild foraminal narrowing. L3-4: Mild circumferential bulge with facet arthropathy. Mild central canal and mild foraminal narrowing L4-5: Circumferential disc bulge with moderate facet arthropathy. Ahex-na-ygsrnudr neural foraminal narrowing. Mild central stenosis. L5-S1: Circumferential disc bulge with moderate to severe facet arthropathy and trace facet joint effusions. Moderate neural from narrowing. There is minimal crowding left subarticular zone contacting the traversing left S1 nerve root. Additional Findings Additional findings: If on a controlled substance or opioids, I have checked an [place] report on this patient and there are no aberrancies noted in the prescribing history.??If on a controlled substance or opioid a drug screen was completed and reviewed within the last year, and if there has not been a drug screen completed we ordered one today to monitor higher risk, state monitored pain medication use. As part of providing excellent, safe, comprehensive care, the following was completed at our patient's visit: 1. A medication reconciliation and review to ensure accurate knowledge of current/active medications, including asking our patients to inform us about any hegj-rbc-mwvenjn medications or herbal remedies/nutritional supplements/alternative remedies. 2. A review to specifically ensure our patients have had annual screening for screening for depression, screening for tobacco use, and screening for unhealthy alcohol use. For concerning screenings had a discussion with the patient, provided patient education, and recommended follow-up with primary care provider when appropriate. If patient noted with a risk of falling, they received education on strength, gait, and balance training to prevent future risk of falling. Portions of this note may have been carried over from the previous visit and updated as appropriate. Please note this office utilizes paper charting in addition to the electronic medical record. A list of current medications, vitals, and PMH is available there as the clinical staff outside of myself do not have access to [employer] charting during the clinic day operations. As part of providing quality comprehensive care the current medications, vitals, and PMH were reviewed in the paper chart. Assessment and Plan Assessment and Plan (1) Lumbar stenosis with neurogenic claudication: Assessment and Plan: The patient has had over 3 months of moderate to severe low back and LE pain with functional impairment and inadequate response to conservative care including NSAIDS (unless there are contraindication such as concurrent blood thinners), multiple oral or topical pain medications, and home exercise program/physical therapy.? Patient has completed >6 weeks of guided home exercise program and/or formal physical therapy program without relief of their symptoms.? I have reviewed the imaging of the lumbar spine and no red flags were identified. The Oswestry Disability Index was completed, and the patient scored a 28%.? The patient noted the following:?? moderate to severe pain with ADLs, standing, walking, sleeping, social life, travel We discussed the risks and benefits of the procedure with the patient, and we are NOT planning on using sedation as outlined in the guidelines from Medicare unless there is a documented reason that sedation would be strongly recommended.?? ?The procedure will be completed with fluoroscopic guidance.? significant limitation in ability to stand, walk, and shop due to pain and weakness (2) Sacroiliitis: Assessment and Plan: can consider left SIJ injection (3) Lumbar spondylosis: Assessment and Plan: consider lumbar MBBs/RFAs for facet mediated pain Plan left L4-5 L5-S1 TFESI under fluoroscopy consider left SIJ injection continue aquatherapy and HEP as tolerated continue baclofen 5mg hs prn pain/spasms f/u 2 weeks after TFESI
--- OUTSIDE RECORDS SUMMARY | 2025-06-16 08:56 | XMS_ITS | Clinical Summary ---
Author Organization [facility] Address [address] [place] [address] Care Team Providers Care [facility] Attendant Name Role Phone Unavailable Primary Care Provider [...] VERY IMPORTANT TO YOUR HEALTH. THE CUR[employer] GUIDELINES RECOMMENDS ANNUAL MAMMOGRAPHY BEGINNING AT AGE 40. THIS FACILITY USES A REMINDER SYSTEM TO ENSURE ALL PATIENTS RECEIVE REMINDER NOTIFICATIONS AT THE APPROPRIATE TIME BASED ON THE RECOMMENDATIONS OF THIS EXAM. Report reported and signed by Thaddeus Pulido on 11/28/2020 1158 Narrative 11/28/2020 12:00 AM EST PERFORMED AT [facility] LOCATION:[place] [address] COMPARISON: Dating back to September 30, 2019 and May 20, 2018 TECHNIQUE: 2D and 3D Tomosynthesis of the right and left breasts was performed. FINDINGS: Breast composition demonstrates heterogeneously dense parenchyma, stable. Typically benign calcifications. No suspicious microcalcifications, asymmetry, architectural distortion or associated features are present. Procedure Note CONVERSION, GENERIC - 05/10/2023 PERFORMED AT [facility] LOCATION:[place] [address] COMPARISON: Dating back to September 30, 2019 [...] VERY IMPORTANT TO YOUR HEALTH. THE CUR[employer] [...] Narrative 02/08/2016 12:00 PM EDT PERFORMED AT [facility] LOCATION:[id number] Procedure Note CONVERSION, GENERIC - 03/21/2023 PERFORMED AT [facility] LOCATION:[id number] us Shante Martinez MD ENDOSCOPY PROCEDURE ORDERABLE S Final Result from Last 3 Months or Most Recently Relevant to Health Maintenance Insurance [facility] MEDICARE ADVANTAGE
--- OUTSIDE RECORDS SUMMARY | 2025-06-16 08:56 | XMS_ITS | Clinical Summary ---
Author Organization [email or web address] [facility] Address [id number] [address] [place] [address] Care Team Providers Care Floating Derrick Operator Name Role Phone Shante Martinez MD Primary Care Provider [phone]- [phone] Allergies Active Allergy Reactions Criticality Noted Date [...] 02/02/2026 02/03/2016 Medical Devices Implanted Type Area Filler Block Inserter Remover Device Identifier Shelf Expiration Date Model / Serial / Lot Lens Iol Ultrasert 17.0d - [id number] - [id number] Implanted:Qty: 1 on 08/20/2022 by Kenrick Caldwell DO at [facility] Lens Left: Eye [employer] 01/18/2025 AU00T0 17.0 / [id number] / Lens Iol Ultrasert 17.0d - [id number] - [id number] Implanted:Qty: 1 on 09/24/2022 by Kenrick Caldwell DO at [facility] Lens Right: Eye [employer] 01/20/2025 AU00T0 17.0 / [id number] / NA Insurance [facility] MEDICARE Advance Directives * Full Code (Latest Code Status on File) Date Activated Date Inactivated Comments 05/05/2020 9:13 AM 05/06/2020 1:33 PM Care Teams Floating Derrick Operator Relationship Specialty Start Date End Date Shante Martinez MD [address] [place] [address] PCP - General Family Medicine 08/24/19
--- OUTSIDE RECORDS SUMMARY | 2025-06-16 09:00 | XMS_ITS | CCD ---
Author Organization [facility]ini[facility]ky Care Team Providers Care Frame Polisher Name Role Phone MIKE, DR IVAN Consulting Unavailable BALL, DR IVAN Attending Unavailable BALL, DR IVAN Admitting Unavailable MIKE, DR IVAN Primary Care Unavailable KIRK, DR CINDI Husain Admitting Unavailable KIRK, DR CINDI Husain Consulting Unavailable KIRK, DR CINDI Husain Attending Unavailable ARTURO, KRISTINA Consulting Unavailable ARTURO, KRISTINA Attending Unavailable ARTURO, KRISTINA Admitting Unavailable BRIDGER, DR CINDI Husain Primary Care Unavailable KIRK, DR CINDI Husain Attending Unavailable KIRK, DR CINDI Husain Admitting Unavailable Cindi Kirk Unavailable Bruno GARCIA, Yoav Granados Attending Unavailable Allergies Allergy Classification Reported Allergen(s) Allergy Type Date of Onset Reaction(s) Facility (2 sources) Acetaminophen / oxyCODONE Drug Allergy 04-06-20 15 [facility] Repository (2 sources) Sulfonamides (Antibiotic) Drug allergy (disorder) 10-31-20 14 [facility] Repository (7 sources) Sulfacetamide Drug Allergy 07-04-20 Unknown, [facility] (3 sources) Allergies Reconciled Propensity to adverse reactions Unknown [employer] Other (3 sources) Substance with sulfonamide structure and antibacterial mechanism of action (substance) Drug allergy Unknown [employer] Other (3 sources) Sulf-10 Drug allergy HIVES/VOMITING [employer] Other (4 sources) Sulfonamides (Antibiotic) Allergy to substance 07-04-20 [facility] Medications Current Medications Medication Drug Class(es) Dates Sig (Normalized) Sig (Original) [id number] 200 actuat albuterol 0.09 mg/actuat metered dose [...] Orally Once a day for 7 days Sep, Active doxycycline monohydrate 100 mg oral tablet (1 source) Tetracycline-clas s Drug Start: 08-05-20 24 take 100 mg by mouth twice daily Doxycycline Monohydrate Active 100 MG PO Twice daily 20 August 05, 2024 12:00am fluticasone (3 sources) Corticosteroid Start: 01-13-20 22 Fluticasone Propionate 50MCG/ACT Fluticasone Propionate 50MCG/ACT, 2 (two) [place] daily # 1, 01/12/2022, Ref. x1. Active Nasal daily for 0 *Pick strength-form from [employer] for eRX* Jan, Active Fluticasone Propion-Salmeterol (1 [...] No Refill. Active oral daily *Reorder from [employer] for eRx and Interaction Alerts* Aug, Active [...] Basophils (Bld) [#/Vol] 0.1 10 3/uL 0.0-0.1 [facility] Basophils/100 WBC Auto (Bld) on 07-10-2024 Basophils/100 WBC (Bld) 0.6 % 0.2-2.0 [facility] Eosinophils/100 WBC Auto (Bl d)on 07-10-2024 Eosinophils/100 WBC (Bld) 3.4 % 0.9-7.0 [facility] Erythrocyte distribution wid th Auto (RBC) [Ratio]on 07-10-2024 Erythrocyte distribution width (RBC) [Ratio] 13.7 % 11.0-15.0 [facility] Estimated glomerular filtrat ion rate (GFR) non- Americanon 07-10-2024 GFR/1.73 sq M.predicted among non-blacks MDRD (S/P/Bld) [Vol rate/Area] mL/min/{1.73_m2} >=60 [facility] Hematocrit Auto (Bld) [Volum e fraction]on 07-10-2024 Hematocrit (Bld) [Volume fraction] 39.1 % 36.0-48.0 [facility] Hemoglobin [Mass/volume] in Bloodon 07-10-2024 Hemoglobin (Bld) [Mass/Vol] 13.5 g/dL 12.0-16.0 [facility] Laboratory - Chemistry and C hemistry - challengeon 07-10-2024 Calcium [Mass/Vol] 9.2 mg/dL 8.5-10.1 [facility] Chloride [Moles/Vol] 102 mmol/L 98-107 [facility] CO2 [Moles/Vol] 26.5 mmol/L 21.0-32.0 [facility] Creatinine [Mass/Vol] 0.80 mg/dL 0.55-1.02 [facility] GFR/1.73 sq M.predicted MDRD (S/P/Bld) [Vol rate/Area] mL/min/{1.73_m2} >=60 [facility] Glucose [Mass/Vol] 92 mg/dL 74-106 [facility] Potassium [Moles/Vol] 3.1 mmol/L Low 3.5-5.1 [facility] Sodium [Moles/Vol] 139 mmol/L 136-145 [facility] Urea nitrogen [Mass/Vol] 20.0 mg/dL High 7.0-18.0 [facility] Urea nitrogen/Creatinine [Mass ratio] 25.0 mg/mg [facility] Laboratory - Hematology and Cell countson 07-10-2024 Immature granulocytes/100 WBC (Bld) 0.5 % 0.0-0.5 [facility] - Microbiology an d Antimicrobial susceptibilityon 07-10-2024 SARS-CoV-2 (COVID-19) RNA TANNA+probe Ql (Unsp spec) Positive Abnormal NEGATIVE [facility] Comment on above: RESULTS CALLED TO [...] Auto (Bld) [#/Vol] 8.6 10 3/uL 4.0-11.0 [facility] Lymphocytes Auto (Bld) [#/Vo l]on 07-10-2024 Lymphocytes (Bld) [#/Vol] 3.1 10 3/uL 1.2-3.8 [facility] Lymphocytes/100 WBC Auto (Bl d)on 07-10-2024 Lymphocytes/100 WBC (Bld) 35.9 % 20.5-60.0 [facility] MCH Auto (RBC) [Entitic mass ]on 07-10-2024 MCH (RBC) [Entitic mass] 32.8 pg 26.7-34.0 [facility] MCHC Auto (RBC) [Mass/Vol]on 07-10-2024 MCHC (RBC) [Mass/Vol] 34.5 g/dL 29.9-35.2 [facility] MCV Auto (RBC) [Entitic vol] on 07-10-2024 MCV (RBC) [Entitic vol] 94.9 fL 81.0-99.0 [facility] Monocytes Auto (Bld) [#/Vol] on 07-10-2024 Monocytes (Bld) [#/Vol] 1.1 10 3/uL High 0.3-0.8 [facility] Monocytes/100 WBC Auto (Bld) on 07-10-2024 Monocytes/100 WBC (Bld) 12.4 % High 1.7-12.0 [facility] Neutrophils Auto (Bld) [#/Vo l]on 07-10-2024 Neutrophils (Bld) [#/Vol] 4.1 10 3/uL 1.4-6.5 [facility] Neutrophils/100 WBC Auto (Bl d)on 07-10-2024 Neutrophils/100 WBC (Bld) 47.2 % 43.0-75.0 [facility] No Panel Informationon 07-10 Eosinophils # (Auto) 0.3 10 3/uL 0.0-0.7 [facility] Immature Granulocyte # (Auto) 0.04 10 3/uL High 0.00-0.03 [facility] Platelet mean volume Auto (B ld) [Entitic vol]on 07-10-2024 Platelet mean volume (Bld) [Entitic vol] 10.4 fL 9.5-13.5 [facility] Platelets Auto (Bld) [#/Vol] on 07-10-2024 Platelets (Bld) [#/Vol] 305 10 3/uL 150-450 [facility] RBC Auto (Bld) [#/Vol]on RBC (Bld) [#/Vol] 4.12 10 6/uL Low 4.20-5.40 [facility] Serum or plasma anion gap de terminationon 07-10-2024 Anion gap [Moles/Vol] 13.6 mmol/L [facility] Influenza virus B Ag [Presen ce] in Upper respiratory specimen by Rapid immunoassayon 07-04-2024 FLUBV Ag IA.rapid Ql (Nph) Negative [facility] No Panel Informationon 07-04 Influenza Type A (Rapid) Negative [facility] POC SARS CoV-2 Antigen Negative [facility] Respiratory specimen 2019 no alexis coronavirus RNA detection by probe and target amplifion 07-04-2024 SARS-CoV-2 (COVID-19) RNA TANNA+probe Ql (Resp) Negative [facility] Covid-19 PCR (CVDTBH)on 08-04 SARS-CoV-2 (COVID-19) RNA TANNA+probe Ql (Unsp spec) Not detected Normal NOT DETECTED [facility] Comment on above: Result Comment: This test is not yet approved or cleared by the [place] FDA. When there are no FDA-approved or cleared tests available, and other criteria are met, FDA can make tests available under an emergency access mechanism called an Emergency Use Authorization (EUA). The EUA for this test is supported by the [employer] of Health and Human Service's (HHS's) declaration [...] SARS-CoV-2. Performed By: #### C VDTB #### [facility] [address] [place] [id number] Gurmeet Hart CBC AUTO DIFFon 03-09-2021 BASO # 0.1 103/ul Normal 0.0-0.1 [facility] Comment on above: Performed By: #### C BC #### [facility] [address] [place] [id number] Jose C Jillian Basophils/100 WBC (Bld) 1.0 % Normal 0.2-2.0 [facility] Comment on above: Performed By: #### C BC #### [facility] [address] [place] [address] Jose C Jillian EO # 0.1 103/ul Normal 0.0-0.7 [facility] Comment on above: Performed By: #### C BC #### [facility] [address] [place] [address] Jose C Jillian Eosinophils/100 WBC (Bld) 1.2 % Normal 0.9-7.0 [facility] Comment on above: Performed By: #### C BC #### [facility] [address] [place] [address] Jose C Jillian Erythrocyte distribution width (RBC) [Ratio] 13.5 % Normal 11.0-15.0 [facility] Comment on above: Performed By: #### C BC #### [facility] [address] [place] [address] Jose C Jillian Hematocrit (Bld) [Volume fraction] 40.3 % Normal 36.0-48.0 [facility] Comment on above: Performed By: #### C BC #### [facility] [address] [place] [address] Jose C Jillian Hemoglobin (Bld) [Mass/Vol] 13.4 g/dL Normal 12.0-16.0 [facility] Comment on above: Performed By: #### C BC #### [facility] [address] [place] [address] Jose C Jillian IG # 0.01 10e3/ul Normal 0.00-0.03 [facility] Comment on above: Performed By: #### C BC #### [facility] [address] [place] [address] Jose C Jillian IG % 0.2 % Normal 0.0-0.5 [facility] Comment on above: Performed By: #### C BC #### [facility] [address] [place] [address] Jose C Jillian LYMPH # 1.5 103/ul Normal 1.2-3.8 [facility] Comment on above: Performed By: #### C BC #### [facility] [address] [place], [place] [id number] Jose C Jillian Lymphocytes/100 WBC (Bld) 31.4 % Normal 20.5-60.0 [facility] Comment on above: Performed By: #### C BC #### [facility] [address] [place], [place] [id number] Jose Cdora Walsh MANUAL DIFF REQ NO Normal [facility] Comment on above: Performed By: #### C BC #### [facility] [address] [place], [place] [id number] Jose C Jillian MCH (RBC) [Entitic mass] 31.2 pg Normal 26.7-34.0 [facility] Comment on above: Performed By: #### C BC #### [facility] [address] [place], [place] [id number] Jose Cdora Walsh MCHC (RBC) [Mass/Vol] 33.3 g/dL Normal 29.9-35.2 [facility] Comment on above: Performed By: #### C BC #### [facility] [address] [place] [address] Jose Cdora Cruzen MCV (RBC) [Entitic vol] 93.7 fL Normal 81.0-99.0 [facility] Comment on above: Performed By: #### C BC #### [facility] [address] [place], [place] [id number] Jose C Jillian MONO # 0.6 103/ul Normal 0.3-0.8 [facility] Comment on above: Performed By: #### C BC #### [facility] [address] [place] [address] Jose C Jillian Monocytes/100 WBC (Bld) 11.8 % Normal 1.7-12.0 [facility] Comment on above: Performed By: #### C BC #### [facility] [address] [place], [place] [id number] Jose C Jillian NEUT # 2.7 103/ul Normal 1.4-6.5 [facility] Comment on above: Performed By: #### C BC #### [facility] [address] [place], [place] [id number] Jose C Jillian Neutrophils/100 WBC (Bld) 54.4 % Normal 43.0-75.0 [facility] Comment on above: Performed By: #### C BC #### [facility] [address] [place], [place] [phone] Jose C Jillian Platelet mean volume (Bld) [Entitic vol] 10.5 fL Normal 9.5-13.5 [facility] Comment on above: Performed By: #### C BC #### [facility] [address] [place], [place] [phone] Jose C Jillian PLT 232 103/ul Normal 150-450 [facility] Comment on above: Performed By: #### C BC #### [facility] [address] [place], [place] [phone] Jose C Jillian RBC 4.30 106/ul Normal 4.20-5.40 [facility] Comment on above: Performed By: #### C BC #### [facility] [address] [place] [address] Jose C Jillian WBC 4.9 103/ul Normal 4.0-11.0 [facility] Comment on above: Performed By: #### C BC #### [facility] [address] [place], [place] [phone] Jose C Jillian PROF CHEM 8 (BAS METB)on Anion gap [Moles/Vol] 10.2 mmol/L Normal [facility] Comment on above: Performed By: #### B OSMANY HSTROPN #### [facility] [address] [place] [address] Jose C Jillian Calcium [Mass/Vol] 9.5 mg/dL Normal 8.4-10.2 [facility] Comment on above: Performed By: #### B OSMANY HSTROPN #### [facility] [address] [place], [place] [id number] Jose C Jillian Chloride [Moles/Vol] 105 mmol/L Normal 98-107 [facility] Comment on above: Performed By: #### B OSMANY HSTROPN #### [facility] [address] [place], [place] [phone] Jose C Jillian CO2 [Moles/Vol] 30.9 mmol/L Critically high 22.0-30.0 [facility] Comment on above: Performed By: #### B OSMANY HSTROPN #### [facility] [address] [address] Jose C Jillian Creatinine [Mass/Vol] 0.67 mg/dL Normal 0.52-1.04 [facility] Comment on above: Performed By: #### B OSMANY HSTROPN #### [facility] [address] [address] Jose C Jillian EGFR-AF MALAWIAN >60 Normal >=60 [facility] Comment on above: Performed By: #### B OSMANY HSTROPN #### [facility] [address] [address] Jose C Jillian EGFR-NON AF MALAWIAN >60 Normal >=60 [facility] Comment on above: Performed By: #### B OSMANY HSTROPN #### [facility] [address] [address] Jose C Jillian Glucose [Mass/Vol] 81 mg/dL Normal 74-106 [facility] Comment on above: Performed By: #### Annabel CERON HSTROPN #### [facility] [address] [place] [address] Jose C Jillian Potassium [Moles/Vol] 4.1 mmol/L Normal 3.4-5.0 [facility] Comment on above: Performed By: #### B OSMANY HSTROPN #### [facility] [address] [address] Jose C Jillian Sodium [Moles/Vol] 142 mmol/L Normal 137-145 [facility] Comment on above: Performed By: #### B OSMANY HSTROPN #### [facility] [address] [address] Jose C Jillian Urea nitrogen [Mass/Vol] 23.0 mg/dL Critically high 7.0-17.0 [facility] Comment on above: Performed By: #### Annabel CERON HSTROPN #### [facility] [address] [address] Jose C Walsh Urea nitrogen/Creatinine [Mass ratio] 34.3 mg/mg Normal [facility] Comment on above: Performed By: #### B OSMANY, HSTROPN #### [facility] [address] [place] [address] Jose C Walsh TROPONIN, HIGH SENSITIVITYon 03-09-2021 HSTROP 7.5 pg/mL Normal 4.0-35.5 [facility] Comment on above: Result Comment: CUT- OFF POINTS HAVE BEEN ESTABLISHED BASED ON THE FOURTH UNIVERSAL DEFINITIONS OF MYOCARDIAL INFARCTION. THE UPPER REFERENCE LIMIT (URL) OF TROPONIN, DEFINED THE 99TH PERCENTILE OF cTnI DISTRIBUTION IN A REFERENCE POPULATION, HAS BEEN CONFIRMED THE DECISION THRESHOLD FOR ND DIAGNOSIS. Performed By: #### B OSMANY, HSTROPN #### [facility] [address] [place] [address] Jose C Walsh Covid-19 PCR (CVDTBH)on 10-05 EUA Statement SEE BELOW Normal [facility] Comment on above: Result Comment: This test is not yet approved or cleared by the [place] FDA. When there are no FDA-approved or cleared tests available, and other criteria are met, FDA can make tests available under an emergency access mechanism called an Emergency Use Authorization (EUA). The EUA for this test is supported by the [employer] of Health and Human Service?s (HHS?s) declaration [...] SARS-CoV-2. Performed By: #### C VDTBH #### [facility] [address] [place] [address] Jose C Walsh SARS-CoV-2 (COVID-19) RNA TANNA+probe Ql (Unsp spec) Detected Abnormal NOT DETECTED [facility] Comment on above: Result Comment: This test is not yet approved or cleared by the [place] FDA. When there are no FDA-approved or cleared tests available, and other criteria are met, FDA can make tests available under an emergency access mechanism called an Emergency Use Authorization (EUA). The EUA for this test is supported by the [employer] of Health and Human Service's (HHS's) declaration [...] longer be used). Performed By: #### C [facility] #### [facility] [address] [address] Jose C Jillian Vital Signs Date Time Vital Sign Value Performing Clinician Faci lity 08-05-2024 10:38-0400 Body height 166.37 cm [facility] 08-05-2024 10:38-0400 Body mass index (BMI) [Ratio] 28.6 kg/m2 [facility] 08-05-2024 10:38-0400 Body temperature 96.5 [degF] [facility] 08-05-2024 10:38-0400 Body weight 79.37 kg [facility] 08-05-2024 10:38-0400 Diastolic blood pressure 84 mm[Hg] [facility] 08-05-2024 10:38-0400 Heart rate 77 /min [facility] 08-05-2024 10:38-0400 SaO2% (BldA) [Mass fraction] 96 % [facility] 08-05-2024 10:38-0400 Systolic blood pressure 138 mm[Hg] [facility] 07-28-2024 09:52-0400 Body height 166.37 cm [facility] 07-28-2024 09:52-0400 Body mass index (BMI) [Ratio] 32.4 kg/m2 [facility] 07-28-2024 09:52-0400 Body weight 89.81 kg [facility] 07-28-2024 09:52-0400 Diastolic blood pressure 80 mm[Hg] [facility] 07-28-2024 09:52-0400 Heart rate 67 /min [facility] 07-28-2024 09:52-0400 SaO2% (BldA) [Mass fraction] 97 % [facility] 07-28-2024 09:52-0400 Systolic blood pressure 122 mm[Hg] [facility] 07-15-2024 13:51-0400 Body height 166.37 cm [facility] 07-15-2024 13:51-0400 Body mass index (BMI) [Ratio] 28.5 kg/m2 [facility] 07-15-2024 13:51-0400 Body temperature 97.7 [degF] [facility] 07-15-2024 13:51-0400 Body weight 79.15 kg [facility] 07-15-2024 13:51-0400 Diastolic blood pressure 82 mm[Hg] [facility] 07-15-2024 13:51-0400 Heart rate 64 /min [facility] 07-15-2024 13:51-0400 Respiratory rate 16 /min [facility] 07-15-2024 13:51-0400 SaO2% (BldA) [Mass fraction] 96 % [facility] 07-15-2024 13:51-0400 Systolic blood pressure 132 mm[Hg] [facility] 07-04-2024 09:45-0400 Body height 166.37 cm [facility] 07-04-2024 09:45-0400 Body mass index (BMI) [Ratio] 29.5 kg/m2 [facility] 07-04-2024 09:45-0400 Body temperature 96.2 [degF] [facility] 07-04-2024 09:45-0400 Body weight 81.64 kg [facility] 07-04-2024 09:45-0400 Diastolic blood pressure 61 mm[Hg] [facility] 07-04-2024 09:45-0400 Heart rate 64 /min [facility] 07-04-2024 09:45-0400 Respiratory rate 18 /min [facility] 07-04-2024 09:45-0400 SaO2% (BldA) [Mass fraction] 96 % [facility] 07-04-2024 09:45-0400 Systolic blood pressure 144 mm[Hg] [facility] Encounters Encounter Date Encounter Type Care Provider Facility Start: 05-17-2025 End: 05-17-2025 ambulatory Yoav Carr MD Facility: Rob Start: 08-05-2024 End: 08-05-2024 ambulatory [facility] Work Phone: Start: 08-05-2024 End: 08-05-2024 Patient encounter procedure [facility] Work Phone: Start: 07-28-2024 End: 07-28-2024 ambulatory [facility] Work Phone: Start: 07-28-2024 End: 07-28-2024 Patient encounter procedure [facility] Work Phone: Start: 07-15-2024 End: 07-15-2024 ambulatory [facility] Work Phone: Start: 07-15-2024 End: 07-15-2024 Patient encounter procedure [facility] Work Phone: Start: 07-10-2024 Non-patient / Non-visit [facility] Work Phone: Start: 07-04-2024 End: 07-04-2024 ambulatory [facility] Work Phone: Start: 07-04-2024 End: 07-04-2024 Patient encounter procedure [facility] Work Phone: Start: 11-19-2023 End: 11-19-2023 ambulatory Cindi Kirk Other [employer] Other Start: 11-19-2023 Telephone encounter Cindi Kirk [facility] Start: 11-11-2023 End: 11-11-2023 ambulatory Cindi Kirk Other [employer] Other Start: 11-11-2023 Telephone encounter Cindi Kirk [facility] Start: 08-15-2021 End: 08-15-[address] MONCHO MCKEON Facility:[facility] Start: 07-24-[address] CINDI KIRK [facility] ity:[facility]1 Start: 03-09-2021 End: 03-10-[address] CINDI KIRK Facility:[facility] Start: 10-31-2020 End: 10-31-2020 ambulatory KRISTINA MORRIS Facility:[facility] Payers Date Payer Category Payer Unknown 1961 Unknown [id number] 1955 Unknown [id number] 2.16.84 [id number] 1955 Unknown [id number] 2.16.84 [id number] 1955 Unknown [id number] 2.16.84 [id number] 1955 Unknown [id number] 2.16.84 [id number] 1955 Unknown [id number] Medicare Medicare [id number] Medicare Medicare-OP No Part B [id number] Self-pay Self Pay [id number] Social History Date Type Detail Facility Unknown if ever smoked [employer] Other Sex Assigned At Sex Assigned At Bir th [employer] Other Start: 07-04-2024 Tobacco smoking status NHIS Never smoked tobacco (finding) [facility] Start: 1955 Sex Assigned At Female [facility] Evaluation note Note Date & Type Note Facility Evaluation note No Information [facility] [employer] Other Evaluation note Note Date & Type Note Facility Evaluation note No assessment information availa ble [facility] Work Phone: Evaluation note Note Date & Type Note Facility Evaluation note Diagnosis Onset Date Viral URI with cough acute Bronchitis, not specified as acute or chronic acute [facility] Work Phone: Evaluation note Note Date & Type Note Facility Evaluation note Diagnosis Onset Date Viral URI with cough acute Bronchitis, not specified as acute or chronic acute Bronchitis, not specified as acute or chronic acute Bronchitis, not specified as acute or chronic acute History of COVID-19 acute [facility] Work Phone: History general Narrative - Reported Note Date & Type Note Facility History general Narrative - Reported Type Medical History Hypertension Medical History Thyroid nodule Medical History Loud snoring Medical History Fatigue Medical History Fibromyalgia Surgical History tubal ligation Surgical History wisdom teeth Surgical History wrist surgery LT Hospitalization History SEE SURGICAL HX [facility] [employer] Other Summary Purpose Family History No Family History Records Found Relationship Condition Age at Onset Recorded Date/T sheree brother Unknown father Hypertension Unknown Unknown Heart disease Unknown Malignant neoplasm Unknown mother Heart disease Unknown Diabetes mellitus Unknown Hypertension Unknown sister Malignant neoplasm Unknown Advance Directives No Advanced Directives Records Found Advance Directive Response Recorded Date/ Time Advance [...] content) DATE CREATED AUTHOR 08/20/2021 [facility] DATE CREATED AUTHOR AUTHOR'S ORGANIZ ATION 05/24/2025 [facility] REASON FOR VISIT (unrecogniz ed section and [...] 15, 2024 End: July 15, 2024 NAM AldridgeC Attending Provider Active Start: July End: July [...] BE BASED ON THE PRIMARY CLINICAL RECORDS. [facility] [employer] provides no warranty or guarantee of the accuracy or completeness of information in this document.
== END 2025-06-16 08:53 | disposition home or self-care (01) ==
LOC: PM 08:52
PROVIDERS: PCP Family Medicine; Visit Provider Nurse Practitioner
DX: M48.062 Spinal stenosis, lumbar region with neurogenic claudication (principal); M46.1 Sacroiliitis, not elsewhere classified; M47.816 Spondylosis without myelopathy or radiculopathy, lumbar region
CPT/HCPCS: G0463

== ENCOUNTER 2025-07-21 09:55 | Outpatient (RCR) | payer MEDICARE, SELFPAY | END 2025-09-16 15:23 | disposition home or self-care (01) | LOC: PT 09:55 | PROVIDERS: PCP Family Medicine; Visit Provider Family Medicine | DX: M54.16 Radiculopathy, lumbar region (principal); M54.30 Sciatica, unspecified side | CPT/HCPCS: 97012; 97110; 97140; 97162; G0283 ==